=== PATIENT | female | born 1935 | race Caucasian/White ===

== ENCOUNTER 2017-09-29 10:05 | Emergency (ER) | payer MEDICARE, BC ==
[2017-09-29 10:22] VITALS: BP 146/80
--- NOTE | 2017-09-29 11:10 | RAD ---
INDICATION: Cough COMPARISON: None TECHNIQUE: PA and lateral dual-energy views were obtained. FINDINGS: Bones/Soft Tissues: There are no acute bony findings. There is osteopenia with kyphoscoliosis Cardiomediastinal: The cardiomediastinal silhouette is normal. There is calcified mitral annulus Lungs: There is hyperinflation. There are no acute infiltrates. Pleura: There are no pleural effusions. Other: None IMPRESSION: NO ACTIVE DISEASE.
--- NOTE | 2017-09-29 11:23 | UC ---
Respiratory Complaint HPI - HPI Summary HPI Summary: cough x 7 day was seen by pcp , dx with Flu , was started on Zpack no better, cont. to have chills, sob no fever - History of Current Complaint Chief Complaint: UCRespiratory Stated Complaint: SOB (HAD FLU) Time Seen by Provider: 09/29/17 10:35 Hx Obtained From: Patient Onset/Duration: Gradual Onset, Lasting Weeks - 1, Still Present, Resolved Timing: Constant Severity Initially: Moderate Severity Currently: Moderate Pain Intensity: 0 Character: Cough: Productive - yellow Aggravating Factors: Exertion, Deep Breaths Alleviating Factors: Nothing Associated Signs And Symptoms: Positive: Dyspnea, Chills, Wheezing, URI, Nasal Congestion. Negative: Fever, Pleuritic Chest Pain, Dizziness, Calf Pain - Allergies/Home Medications Allergies/Adverse Reactions: Allergies Allergy/AdvReac Type Severity Reaction Status Date / Time No Known Allergies Allergy Verified 09/29/17 10:14 Home Medications: Home Medications Azithromycin TAB* [Zithromax TAB (Z-MITRA) 250 mg #6 tabs] 250 mg PO DAILY [History Confirmed 09/29/17] PMH/Surg Hx/FS Hx/Imm Hx Cardiovascular History: Hypertension Respiratory History: COPD - Surgical History Surgical History: Yes Surgery Procedure, Year, and Place: benign bladder cyst removed 11 years ago , CATARACTS - Family History Known Family History: Positive: Hypertension - Social History Alcohol Use: None Substance Use Type: None Smoking Status (MU): Former Smoker When Did the Patient Quit Smoking/Using Tobacco: 2005 Review of Systems Constitutional: Chills, Fatigue Skin: Negative Eyes: Negative ENT: Nasal Discharge Respiratory: Shortness Of Breath, Cough Cardiovascular: Negative Gastrointestinal: Negative Is Patient Immunocompromised?: No All Other Systems Reviewed And Are Negative: Yes Physical Exam Triage Information Reviewed: Yes Appearance: Well-Appearing, No Pain Distress, Well-Nourished Vital Signs: Initial Vital Signs Temp 97.1 F 09/29/17 10:18 Pulse 112 09/29/17 10:18 Resp 16 09/29/17 10:18 BP 146/80 09/29/17 10:18 Pulse Ox 92 09/29/17 10:18 Vital Signs Reviewed: Yes Eyes: Positive: Conjunctiva Clear ENT: Positive: Normal ENT inspection, Hearing grossly normal, Pharynx normal, Nasal congestion Neck: Positive: Supple, Nontender, No Lymphadenopathy Respiratory: Positive: Chest non-tender, Decreased breath sounds. Negative: No respiratory distress, No accessory muscle use, Respiratory distress Cardiovascular: Positive: Tachycardia Skin Exam: Normal UC Diagnostic Evaluation - Laboratory O2 Sat by Pulse Oximetry: 92 Diagnostic Studies Comment: chest xray: IMPRESSION: NO ACTIVE DISEASE. Respiratory Course/Dx - Differential Dx/Diagnosis Provider Diagnoses: copd. acute Bronchitis Discharge - Discharge Plan Condition: Stable Disposition: HOME Prescriptions: Benzonatate CAP* [Tessalon 100 MG CAP*] 100 mg PO TID PRN #12 cap PRN Reason: Cough predniSONE TAB* [Deltasone TAB*] 20 mg PO DAILY #7 tab Patient Education Materials: COPD (Chronic Obstructive Pulmonary Disease) (ED) Referrals: Perry Chaparro MD [Primary Care Provider] -
--- OUTSIDE RECORDS SUMMARY | 2017-09-29 11:39 | XMS REPORT ---
:1935 External Reference #:[id number] Author Organization [facility] Address [address], [address] [place] [address] Phone [phone] Care Team Providers Name Role Phone Perry Chaparro MD Care Team Information Manager Helpdesk Unavailable Perry Chaparro MD Primary Care Physician Unavailable Payers Type Date Identification Numbers Payment Provider Subscriber Medicare Primary Policy Number: [id number] Medicare Magdalena Garcia PayID: [id number] [address] [place] [address] [facility] Policy Number: [id number] Jose Magdalena Garcia Group Number: [id number] [address] PayID: [id number] [place] [address] Problems Description No Information Social History Type Date Description Comments Marital Status ETOH Use Never used alcohol Smoking Patient is a former smoker Recreational Drug Use Never Used Drugs Allergies, Adverse Reactions, Alerts Date Description Reaction Status Severity Comments 04/16/2015 NKDA active Medications Medication Date Status Form Strength Qnty SIG Indications Ordering Provider Omnaris / Active Suspension 50mcg/Act 2 sprays Unknown 0000 both nostrils every day Cranberry / Active Capsules 250mg 1 by mouth Unknown 0000 every day Miacalcin / Active Solution 200Unit/A use [address] alternating nostrils once daily Miralax / Active Packet 3350NF 17g by mouth Unknown 0000 qhs Trimethoprim / Active Tablets 50mg 1/2 tab by Unknown 0000 mouth every day Cartia XT / Active Caps ER 240mg 1 by mouth Unknown 0000 24HR every day Bob Colon 00// Active Capsules 1 po qd Unknown Health 0000 Lansoprazole 00// Active Capsules DR 30mg 1 by mouth Unknown 0000 every day Eye Vitamins 00/ Active Capsules 1 cap by Unknown 0000 mouth twice a day ( Areds) Ofloxacin 11/11/ Hx Solution 0.3% 1unit 1 drop right H25.811 Darnell (Ophthalmic) 2017 - s eye jessica Amador, 12/01/ times daily 2017 for 10 days beginning three days prior to the operation Prednisolone 11/11/ Hx Suspension 1% 10ml 1 drop right H25.811 Darnell Acetate 2017 - eye jessica Amador, 05/26/ times daily MD 2016 for four weeks; please begin after surgery Diclofenac 11/11/ Hx Solution 0.1% 1unit 1 drop right H25.811 Darnell Sodium 2017 - s eye jessica Amador, 05/26/ times daily MD 2016 for 2 weeks beginning three days before operation Ofloxacin 08/29/ Hx Solution 0.3% 1unit use 1 drop H25.813 Darnell (Ophthalmic) 2016 - s left eye Amador, 09/18/ four times MD 2016 daily for 10 days beginning three days before surgery Prednisolone 08/29/ Hx Suspension 1% 10ml 1 drop left H25.813 Darnell Acetate 2016 - eye four Amador, 01/01/ times daily 2016 for four weeks; please begin after surgery Diclofenac 10/ Hx Solution 0.1% 1unit 1 drop left H25.813 Darnell Sodium 2016 - s eye jessica Amador, 01/01/ times daily 2016 for 2 weeks beginning three days before operation Oscal 500/200 00/00/ Hx Tablets 500-200mg by mouth Unknown D-3 0000 - -Unit twice a day 2016 Prilosec OTC 00/00/ Hx Tablets DR 20mg 1 by mouth Unknown 0000 - every day 2016 Multi Vitamin 00/00/ Hx Tablets Unknown Daily 0000 - 2016 Results Description No Information Procedures Date CPT Code Description Status 09/17/2017 81497 Eye Exam Est Patient Comprehensive Completed 05/26/2017 10221 Retina Completed 05/26/2017 29918 Eye Exam Est Patient Comprehensive Completed 11/17/2016 36178 Extracapsular Cataract Extraction W/Intraocular Lens Completed 10/22/2016 51302 Eye Exam Est Patient Comprehensive Completed 07/23/2016 56132 Eye Exam Est Patient Comprehensive Completed 04/30/2016 47526 Retina Completed 04/30/2016 75935 Eye Exam Est Patient Comprehensive Completed 01/03/2016 65327 Eye Exam Est Patient Comprehensive Completed 09/03/2015 24479 Extracapsular Cataract Removal W/Insertion Of Completed Intraocular Lens pr 08/29/2015 13935 Ophthalmic Biometry By Partial Coherence Interferometry Completed W/Intra 08/10/2015 69358 Eye Exam Est Patient Comprehensive Completed 08/10/2015 28412 Retina Completed 04/17/2015 03700 Retina Completed 04/17/2015 51944 Eye Exam New Patient Comprehensive Completed 05/16/2014 10379 Stress Test Interpre And Report Only Completed 05/16/2014 73846 Stress Test Physician Super Only Completed 05/16/2014 54999 Stress Test Physician Super Only Completed 05/16/2014 94386 Myocardial Imaging Tomographic Multiple Study At Rest Completed Or Stress 05/24/2010 Mammogram Completed 09/07/2007 35153 Stress Test Interpre And Report Only Completed 09/07/2007 37668 Stress Test Physician Super Only Completed Encounters Type Date Location Provider CPT E/M Dx Office Visit 04/26/2015 1:15[place] [address] H35.32 H35.31 H25.813 Office Visit 05/10/2009 10:00a Surgical Office [place], [address] 569.3 M.D. 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 degn, right eye, stage unspecifiedComments:- tolerating anti-vegf with dr forrest; next appt october 2017 - continue eye vitamins- continue amslergrid - retina appears flat at this time ; quiescent- will continue to follow with dr forrestFotalisha up:6 months return visit; dilate ou; oct macula ou ok to cancel 11/09 and 11/23 appt wkvopuC04.8590 Nexdtve age-related mclr degn, left eye, early dry stageComments:- appears stable- continue eye vitamins- continue amsler gridH04.123 Dry eye syndrome of bilateral lacrimal glandsComments:- for the tearing, please consider: - warm compresses - artificial tears both eyes - consider ointment at night - over the counter ointments include lacri-lube, systane, refresh pmZ96.1 Presence of intraocular lensComments:- good results/p ce, iol, right eye 11/17/16 , s/p ce, iol left eye
--- OUTSIDE RECORDS SUMMARY | 2017-09-29 11:41 | XMS REPORT ---
:1935 External Reference #:[id number] Author Organization [facility] Address [address] [place] [address] Phone [phone] Care Team Providers Name Role Phone Perry Chaparro M.D. Care Team Information Instructor Warper Unavailable Perry Chaparro M.D. Primary Care Physician Unavailable Payers Type Date Identification Numbers Payment Provider Subscriber Medicare Primary Effective: Policy Number: Medicare Magdalena Garcia 1999 [id number] PayID: [id number] [address] [place] [address] Medigap Part B Effective: 2015 Policy Number: [place] [place] Magdalena Garcia [id number] PayID: [id number] [address] [address] [place] [address] Problems Date Description Provider Status Onset: 05/06/2017 Urinary tract infectious disease Colby Michele MD Active Family History Date Family Member(s) Problem(s) Comments Father Bladder Cancer Father Heart Disease Mother Lung Cancer First Sister Breast Cancer Social History Type Date Description Comments Marital Status Occupation Patient is retired Cigarette Use 08/10/2017 Former Cigarette Smoker ETOH Use Patient denies alcohol use Daily Caffeine Consumes on average 1 cup of coffee per day Allergies, Adverse Reactions, Alerts Date Description Reaction Status Severity Comments 05/06/2017 NKDA active Medications Medication Date Status Form Strength Qnty SIG Indications Ordering Provider Lansoprazole / Active Capsules 30mg Shankar, Carson Amador M.D. Omnaris / Active Suspension 50mcg/Act Shankar, Carson Amador M.D. Preservision / Active Tablets Unknown Areds 0000 Bob Colon / Active Capsules Unknown Health 0000 Miralax / Active Packet 3350NF as Unknown 0000 needed Calcitonin 00/00/ Active Solution 200Unit/Ac Gauss, (New Site) 0000 t Juan Amador Ciprofloxacin 05/26/ Hx Tablets 500mg 14tabs 1 by RAIZA Michele 2016 - mouth Arnoskar 06/02/ twice a P.MD 2016 day Cipro 05/11/ Hx Tablets 500mg 14tabs 1 by Ryne 2016 - mouth Arnold 05/18/ twice a P.MD 2016 day Trimethoprim / Hx Tablets 100mg Unknown 0000 - 2017 Vital Signs Date Vital Result Comment 09/14/2017 Height 62 inches 5'2" Weight 148.00 lb Weight in kg's 67.133 BMI (Body Mass Index) 27.1 kg/m2 BP Systolic 144 mmHg BP Diastolic 95 mmHg Heart Rate 102 /min Body Temperature 97.7 F 08/10/2017 Height 62 inches 5'2" Weight 145.00 lb Weight in kg's 65.772 BMI (Body Mass Index) 26.5 kg/m2 BP Systolic 140 mmHg BP Diastolic 78 mmHg Heart Rate 76 /min Respiratory Rate 18 /min 05/06/2017 Height 62 inches 5'2" Weight 140.00 lb Weight in kg's 63.504 BMI (Body Mass Index) 25.6 kg/m2 BP Systolic 153 mmHg BP Diastolic 86 mmHg Heart Rate 92 /min Results Test Date Test Result H/L Range Note 230 Ua Routine 09/14/2017 Ua Glucose Negative Ua Protein Negative Ua Nitrite Negative Ua Leuko Negative Ua Blood Negative Ua Color Yellow Ua Ketones Negative Ua Clarity Clear Ua Specific [place] 1.010 1.003-1.030 Ua PH 6.0 5.0-7.5 Ua Bilirubin Negative Ua Urobilinogen 0.2 E.U./dL 0.0-1.0 Urine Microscopy 08/10/2017 Urine WBC 25-50 /HPF 0 - 5 Urine RBC 0-2 /HPF 0-2 Bacteria 1+ /HPF Neg Crystals NEG /HPF Neg Epithelial Cells 1+ /HPF Neg Sperm NEG /HPF Neg Yeast NEG /HPF Neg UACast NEG /LPF Neg Urine Culture 08/10/2017 Urine Culture URETHRAL LIT 1 Quantity > 100,000 CFU/mL 1, 2 230 Ua Routine 08/10/2017 Ua Glucose Negative Ua Protein Negative Ua Nitrite Negative Ua Leuko 1+ Ua Blood Negative Ua Color Yellow Ua Ketones Negative Ua Clarity Clear Ua Specific [place] 1.010 1.003-1.030 Ua PH 6.0 5.0-7.5 Ua Bilirubin Negative Ua Urobilinogen 0.2 E.U./dL 0.0-1.0 Urine Microscopy 05/06/2017 Urine WBC 25-50 /HPF 0 - 5 Urine RBC 0-2 /HPF 0-2 Bacteria 4+ /HPF Neg Crystals neg /HPF Neg Epithelial Cells 1+ /HPF Neg Sperm NEG /HPF Neg Yeast NEG /HPF Neg UACast neg /LPF Neg Urine Culture 05/06/2017 Urine Culture ENTEROBACTER KARI <SEE NOTE> 3 Quantity > 100,000 CFU/mL 4 Urine Culture ENTEROCOCCUS JADYN <SEE NOTE> 5 Quantity > 100,000 CFU/mL 6 Enterobacter Cloacae Complex 05/06/2017 Nitrofurantoin 32 Trimethoprim/Sulfamethoxazole >=320 Cefazolin >=64 Ciprofloxacin <=0.25 Piperacillin/Tazobactam 64 Ceftazidime 16 Ceftriaxone 16 Cefepime <=1 Levofloxacin <=0.12 Imipenem <=0.25 Gentamicin <=1 Tobramycin <=1 Enterococcus Faecalis 05/06/2017 Penicillin G 4 Tetracycline >=16 Nitrofurantoin <=16 Ampicillin <=2 Ciprofloxacin 1 Levofloxacin 0.5 Vancomycin 1 Urine Cytology 05/06/2017 Clinical History N39.0 Specimen Adequacy Satisfactory for <SEE NOTE> 7 BodySite Voided - Clean C <SEE NOTE> 8 Gross Description Received in a sp <SEE NOTE> 9 Microscopic Description Mild numbers of <SEE NOTE> 10 Final Diagnosis NEGATIVE FOR HIG <SEE NOTE> 11 CPTCode 60491 PDF Report SEE IMAGE 230 Ua Routine 05/06/2017 Ua Glucose Negative Ua Protein Negative Ua Nitrite Negative Ua Leuko 1+ Ua Blood Negative Ua Color yellow Ua Ketones Negative Ua Clarity clear Ua Specific [place] 1.010 1.003-1.030 Ua PH 6.5 5.0-7.5 Ua Bilirubin Negative Ua Urobilinogen 0.2 E.U./dL 0.0-1.0 Laboratory test finding 2016 Urine Culture Mixed Urethral High Laboratory test finding 10/12/2014 Urine Culture Non Lactose Frem High Laboratory test finding 11/14/2009 Urine Culture Klebsiella Pneue High 1 N39.0 2 > 100,000 CFU/mL 3 ENTEROBACTER CLOACAE COMPLEX 4 > 100,000 CFU/mL 5 ENTEROCOCCUS FAECALIS 6 > 100,000 CFU/mL 7 Satisfactory for evaluation. 8 Voided - Clean Catch 9 Received in a specimen container, labeled with the patients name and , is Cloudy Yellow fluid consistent with urine, measuring approximately 70 ml. 10 Mild numbers of neutrophils present. 11 NEGATIVE FOR HIGH-GRADE UROTHELIAL CARCINOMA. Procedures Date CPT Code Description Status 09/14/2017 05853 Insertion,Of Non Indwelling Bladder Catheter Eg Completed Straight Catheter 07/20/2015 Mammogram Completed 07/20/2014 Colonoscopy Completed Encounters Type Date Location Provider CPT E/M Dx Office Visit 09/14/2017 9:15a [facility], [address] N39.0 Urology P.A. R35.1 R39.14 R39.15 Office Visit 08/10/2017 11:45a [facility] [address] N39.0 Office Visit 05/06/2017 11:30a [facility] [address] N39.0 Plan of Care Future Appointment(s):10/08/2017 11:30 am - Colby Michele MD at [facility] Cwsjmlf7009/14/2017 - Bijan Soriano, P.A.N39.0 Urinary tract infection , site not specifiedComments:Urine is sent for culture and sensitivity. She is provided Cipro 250 twice a day with dosing and side effects instructions. We'll have a catheterized urine collected at her next follow-up visit with Dr. PAGE35.1 IfvsewhvM29.14 Feeling of incomplete bladder mjzfievtE05.15 Urgency of urination
--- OUTSIDE RECORDS SUMMARY | 2017-09-29 11:41 | XMS REPORT ---
:1935 External Reference #:[id number] Author Organization [facility] Address [address] [place] [address] Phone [phone] Care Team Providers Name Role Phone Perry Chaparro MD Primary Care Physician Unavailable Payers Type Date Identification Numbers Payment Provider Subscriber Medicare Primary Policy Number: [id number] Medicare Magdalena Garcia PayID: [id number] [address] [place] [address] Medigap Part B Policy Number: [id number] [facility] Magdalena Garcia Group Number: [id number] [address] [address] PayID: [id number] [place] [address] Problems Date Description Provider Status Onset: 07/15/2005 Type II diabetes mellitus uncontrolled Perry Chaparro MD Active Onset: 07/15/2005 Congenital heart disease Perry Chaparro MD Active Onset: 07/15/2005 Hyperlipidemia Perry Chaparro MD Active Onset: 07/15/2005 Chronic obstructive lung disease Perry Chaparro MD Active Onset: 07/15/2005 Conduction disorder of the heart Perry Chaparro MD Active Family History Date Family Member(s) Problem(s) Comments Father Hyperlipidemia Father due to Heart Disease () Mother due to Lung Cancer () First Son due to Cancer () First Sister Breast Cancer Social History Type Date Description Comments Marital Status Cigarette Use Former Cigarette Smoker ETOH Use Denies alcohol use Recreational Drug Use Denies Drug Use Smoking Patient is a former smoker # Partners in a Lifetime The patient has had 1 sexual partner Allergies, Adverse Reactions, Alerts Date Description Reaction Status Severity Comments 08/25/2016 NKDA active 11/08/2014 NKDA inactive Medications Medication Date Status Form Strength Qnty SIG Indications Ordering Provider Miacalcin 06/01 Active Solution 200Unit/M 4unit spray 1 . L s spray MD Shankar alternating nares once daily Lansoprazole 01/[address] 30mg 90cap 1 by mouth Perry F. s every day MD Shankar Preservision 08/27 Active Capsules Areds 2 Perry F. Areds MD Shankar Diltiazem HCL 06/04 Active Caps ER 240mg 90cap 1 by mouth I11.9 Perry F. ER 24HR s every day MD Shankar Clonidine HCL 05/03 Active Tablets 0.1mg 5tabs take one as I11.9 Perry needed for MD Shankar systolic blood pressure greater than 150 Omnaris 11/18 Active Suspension 50mcg/Act 3mont 1 every day hs as directed MD Shankar Miralax 12/05 Active Packet 3350NF 30PKT 17 GMS In 8 S Oz H2o Q 12 MD Shankar Hours prn Calcium 500 12/05 Active Tablets 500mg qd MD Shankar Linzess 00 Active Capsules 145mcg 10cap 1 by mouth Syam, /0000 s every day Bishwarup Trimethoprim 00 Active Tablets 100mg Unknown /0000 Paroxetine HCL 11/24 Hx Tablets 10mg 30tab 1 by mouth F32.9 Perry F. s every day MD Shankar - 06/01 Prilosec OTC 11/[address] 20mg 90tab tab 1 by Perry F. s mouth every MD Shankar - day 01/21 Ciprofloxacin 08/25 Hx Tablets 500mg 6tabs 1 by mouth N39.0 Perry F. twice a day MD Shankar - 11/24 Prilosec 08/[address] 20mg 90cap tab 1 by Perry F. s mouth every MD Shankar - day 11/24 Ditropan XL 11/15 Hx Tablets ER 5mg 90tab 1 by mouth N39.498 Perry . 24HR s every day MD Shankar - 06/01 Ciprofloxacin 11/08 Hx Tablets 250mg 6tabs 1 by mouth 788.1 Perry F. HCL /2014 twice a day MD Shankar - 11/28 Lansoprazole 08/[address] 30mg 180ca 1 by mouth Perry F. ps Twice A Day MD Shankar - 11/08 Prevacid 06/[address] 30mg 90cap 1 by mouth 530.81 Perry F. /2013 s every day MD Shankar - 08/07 Omeprazole 05/[address] 40mg 60cap 1 by mouth 530.81 Perry F. /2013 s bid MD Shankar - 06/05 Naprosyn 12/27 Hx Tablets 375mg 30tab 1 po bid Perry F. /2013 s prn MD Shankar - 09/22 Azithromycin 09/26 Hx Tablets 250mg 6tabs 2 po today, 496 Perry F. /2013 1 po day 2 MD Shankar - thru 5 04/25 Azithromycin 05/17 Hx Tablets 250mg 6tabs 2 po today, 461.90 Perry F. /2012 1 po day 2 MD Shankar - thru 5 09/26 Miacalcin 12/06 Hx Solution 200Unit/A 4unit spray 1 Perry F. /2012 ct s spray MD Shankar - alternating 06/01 nares once daily Cranberry 06/14 Hx Tablets 250mg Perry F. Extract MD Shankar - 09/22 Prilosec OTC 05/[address] 20mg 84tab 1 po qd Perry F. /2011 yakov Chaparro MD - 06/14 Amoxicillin 05/05 Hx Capsules 500mg 40cap 2 po bid 461.1 Perry F. /2010 yakov Chaparro MD - 10/05 Bactrim 11/18 Hx Tablets 400-80mg 1/2 po qd - 11/18 Paroxetine HCL 05/27 Hx Tablets 10mg 30tab 1 po qd 311 Perry F. /2009 yakov Chaparro MD - 06/24 Bactrim 05/13 Hx Tablets 400-80mg 1/2 bid for 1 wk, then - 1/2 po qd 05/13 Fluoxetine HCL 05/13 Hx Capsules 20mg 30cap 1 po qd 311 Perry F. /2009 yakov Chaparro MD - 05/27 Zithromax 09/10 Hx Tablets 250mg 1Pack 2 po day 1, 461.1 Perry F. /2009 1 po qd x MD Shankar - days 2-5 10/10 Multi-Vitamin 12/05 Hx Tablets 1 PO qd Perry F. /2008 MD Shankar - 06/01 Zithromax 12/05 Hx Tablets 250mg 1Pack 2 PO Day 1, 466.00 Perry F. /2008 1 PO qd X MD Shankar - Days 2-09/10 Cipro 07/05 Hx Tablets 500mg 14tab 1 PO bid 599.0 Perry F. /2006 yakov Chaparro MD - 03/27 Chantix 02/16 Hx as directed 305.1 Perry F. Starter Pack /2006 MD Shankar - 02/16 Chantix Con't 02/16 Hx 1mg 60uni 1mg po bid 305.1 Perry F. Month /2006 ts MD Shankar - 09/13 Chantix 12/15 Hx 1unit as Directed 305.1 Perry F. Starter /2006 yakov Chaparro MD - 02/16 Fosamax 07/29 Hx Tablets 70mg 12tab one po q Perry F. /2005 s maria t Chaparro MD - 05/24 Clarinex 07/29 Hx Tablets 5mg 90tab 1 PO qd prn Perry F. /2005 yakov Chaparro MD - 09/22 Calcium 07/28 Hx Tablets 500mg 1 PO tid Perry F. Carbonate W /2005 MD Shankar Vit D - 12/05 Claritin 07/28 Hx Tablets 10mg 100ta 1 po qd prn Perry F. /2005 bs MD Shankar - 07/29 Metamucil 07/28 Hx Granules 4.03GM/TS Perry F. /2005 P MD Shankar - 12/05 Lactulose 07/28 Hx Syrup 10GM/15 120ml 2 tsp po Perry F. /2005 ML qhs MD Shankar - 12/05 Miacalcin 07/01 Hx Solution 200Units/ 6unit 1 spray qd Perry Wilkins Activatio s to alt. MD Shankar Ballinger - n nares 12/06 Premarin 00 Hx Tablets 0.625mg 90tab 1 PO qd Oh, In /0000 s Betito [place] - 08/15 Macrodantin 00 Hx Capsules 100mg 14cap 1 Tab PO Unknown s bid X 7 - Days 12/05 Macrodantin 00 Hx Capsules 25mg 1 po qd Unknown /0000 - 05/13 Nitrofurantoin Hx Capsules 50mg 14cap 1 PO bid Perry Wilkins Macrocrystal / s MD Shankar - 04/25 Medications Administered in Office Medication Date Status Form Strength Qnty SIG Indications Ordering Provider H1N1 Administered Injection Perry FBhargavi Administration 009 MD Shankar -Use H1N1 Administered Injection Nurse Administration 009 -Use Immunizations CPT Code Status Date Vaccine Reaction Lot # [id number] Given 04/01/2017 Influenza Virus (Afluria) Split Virus 3 Years Of Age And Older Q2037 Given 04/05/2016 Influenza Vaccine (Fluvirin) 5 Years Of Age Or Older 12076 Given 06/04/2015 Tetanus,Diphtheria,Adut/Adol [id number] Pertussis 11685 Given 06/04/2015 Pneumococcal Conjugate Vaccine [id number] 13 Valent For Intramuscular Use Q2035 Given 04/03/2015 Influenza Virus (Afluria) Split [id number] Virus 3 Years Of Age And Older Q2037 Given 04/18/2014 Influenza Vaccine (Fluvirin) 5 Years Of Age Or Older Q2038 Given 04/05/2013 Influenza Vaccine (Fluzone) Done at [facility] Administered Age 3 And Older Q2037 Given 05/24/2012 Influenza Vaccine (Fluvirin) 3 [id number] Years Of Age Or Older Q2037 Given 02/28/2012 Influenza Vaccine (Fluvirin) 5 [id number] Years Of Age Or Older 49755 Given 12/24/2010 [place] [id number] 98504 Given 04/05/2010 Influenza Vaccine [id number] 45811 Given 05/30/2009 Zostavax 35345 Given 04/10/2009 Influenza Vaccine 39868 Given 08/15/2008 Zostavax [id number] 20873 Given 03/27/2008 Influenza Vaccine [id number] 15358 Given 04/23/2007 Influenza Vaccine [id number] 66492 Given 04/16/2006 Influenza Vaccine 08649 Given 04/16/2006 Influenza Vaccine [id number] 34164 Given 07/29/2005 Pneumovax Polyvalent Inj Im [id number] 47504 Given 05/13/2005 Influenza Vaccine [id number] 01916 Given 05/13/2005 Influenza Vaccine 97898 Given 06/20/2004 Influenza Vaccine 96390 Given 12/04/2003 Tetanus And Diptheria Toxiods 00956 Given 06/19/2003 DT Immunization DIP/Tet (History Only) Vital Signs Date Vital Result Comment 09/22/2017 BP Systolic 128 mmHg BP Diastolic 74 mmHg Heart Rate 80 /min Body Temperature 97.8 F Respiratory Rate 20 /min Height 62 inches 5'2" 06/01/2017 BP Systolic 138 mmHg BP Diastolic 84 mmHg Height 62 inches 5'2" Weight 147.00 lb BMI (Body Mass Index) 26.9 kg/m2 05/11/2017 BP Systolic 110 mmHg BP Diastolic 60 mmHg Height 62 inches 5'2" Weight 146.00 lb BMI (Body Mass Index) 26.7 kg/m2 01/21/2017 BP Systolic 140 mmHg BP Diastolic 80 mmHg 01/14/2017 BP Systolic 150 mmHg BP Diastolic 82 mmHg 11/24/2016 BP Systolic 138 mmHg BP Diastolic 70 mmHg Height 62 inches 5'2" Weight 147.00 lb BMI (Body Mass Index) 26.9 kg/m2 08/25/2016 BP Systolic 124 mmHg BP Diastolic 68 mmHg Height 62 inches 5'2" Weight 144.00 lb BMI (Body Mass Index) 26.3 kg/m2 05/13/2016 BP Systolic 124 mmHg BP Diastolic 70 mmHg Height 62 inches 5'2" Weight 148.00 lb BMI (Body Mass Index) 27.1 kg/m2 09/10/2015 BP Systolic 136 mmHg BP Diastolic 70 mmHg 08/27/2015 BP Systolic 128 mmHg BP Diastolic 70 mmHg Height 62 inches 5'2" Weight 146.00 lb BMI (Body Mass Index) 26.7 kg/m2 06/04/2015 BP Systolic 144 mmHg BP Diastolic 88 mmHg Height 62 inches 5'2" Weight 147.00 lb BMI (Body Mass Index) 26.9 kg/m2 05/03/2015 BP Systolic 140 mmHg BP Diastolic 82 mmHg BP Systolic Recheck 142 mmHg BP Diastolic Recheck 80 mmHg 11/28/2014 BP Systolic 120 mmHg BP Diastolic 70 mmHg 11/15/2014 BP Systolic 128 mmHg BP Diastolic 84 mmHg 11/08/2014 BP Systolic 110 mmHg BP Diastolic 60 mmHg Body Temperature 93.5 F Height 62 inches 5'2" 09/04/2014 BP Systolic 138 mmHg BP Diastolic 78 mmHg Height 62 inches 5'2" 08/07/2014 BP Systolic 138 mmHg BP Diastolic 72 mmHg Height 62 inches 5'2" Weight 143.00 lb BMI (Body Mass Index) 26.2 kg/m2 06/05/2014 BP Systolic 140 mmHg BP Diastolic 78 mmHg 05/30/2014 BP Systolic 124 mmHg BP Diastolic 70 mmHg Height 62 inches 5'2" Weight 146.00 lb BMI (Body Mass Index) 26.7 kg/m2 05/23/2014 BP Systolic 128 mmHg BP Diastolic 70 mmHg 05/10/2014 BP Systolic 128 mmHg BP Diastolic 62 mmHg 05/03/2014 BP Systolic 128 mmHg BP Diastolic 80 mmHg Height 62 inches 5'2" 04/25/2014 BP Systolic 154 mmHg BP Diastolic 88 mmHg 01/10/2014 BP Systolic 132 mmHg BP Diastolic 80 mmHg 11/30/2013 BP Systolic 150 mmHg BP Diastolic 90 mmHg 09/26/2013 BP Systolic 140 mmHg BP Diastolic 80 mmHg Height 62 inches 5'2" Weight 148.00 lb BMI (Body Mass Index) 27.1 kg/m2 05/17/2013 BP Systolic 118 mmHg BP Diastolic 60 mmHg Body Temperature 95.0 F Height 62 inches 5'2" Weight 142.00 lb BMI (Body Mass Index) 26.0 kg/m2 12/06/2012 BP Systolic 122 mmHg BP Diastolic 60 mmHg Height 62 inches 5'2" Weight 150.00 lb BMI (Body Mass Index) 27.4 kg/m2 06/14/2012 BP Systolic 126 mmHg BP Diastolic 60 mmHg Height 62 inches 5'2" 05/24/2012 BP Systolic 118 mmHg BP Diastolic 60 mmHg Height 62 inches 5'2" Weight 152.00 lb BMI (Body Mass Index) 27.8 kg/m2 10/06/2011 BP Systolic 132 mmHg BP Diastolic 78 mmHg Height 62 inches 5'2" Weight 159.00 lb BMI (Body Mass Index) 29.1 kg/m2 05/05/2011 BP Systolic 140 mmHg BP Diastolic 82 mmHg Body Temperature 96.3 F Height 62 inches 5'2" Weight 157.00 lb BMI (Body Mass Index) 28.7 kg/m2 12/24/2010 BP Systolic 138 mmHg BP Diastolic 78 mmHg Height 62 inches 5'2" Weight 156.00 lb BMI (Body Mass Index) 28.5 kg/m2 12/02/2010 BP Systolic 140 mmHg BP Diastolic 86 mmHg Height 62 inches 5'2" 11/18/2010 BP Systolic 118 mmHg BP Diastolic 62 mmHg Height 62 inches 5'2" Weight 154.00 lb BMI (Body Mass Index) 28.2 kg/m2 06/24/2010 BP Systolic 128 mmHg BP Diastolic 72 mmHg Height 62 inches 5'2" 05/27/2010 BP Systolic 122 mmHg BP Diastolic 60 mmHg Height 62 inches 5'2" 05/13/2010 BP Systolic 124 mmHg BP Diastolic 78 mmHg Height 62 inches 5'2" Weight 150.00 lb BMI (Body Mass Index) 27.4 kg/m2 10/10/2009 BP Systolic 122 mmHg BP Diastolic 64 mmHg Height 62 inches 5'2" Weight 153.00 lb BMI (Body Mass Index) 28.0 kg/m2 09/10/2009 BP Systolic 140 mmHg BP Diastolic 100 mmHg Body Temperature 97.4 F Weight 152.00 lb 04/16/2009 BP Systolic 154 mmHg BP Diastolic 98 mmHg 12/05/2008 BP Systolic 140 mmHg BP Diastolic 80 mmHg Body Temperature 98.0 F Height 62 inches 5'2" Weight 147.00 lb BMI (Body Mass Index) 26.9 kg/m2 11/13/2008 BP Systolic 128 mmHg BP Diastolic 72 mmHg Height 62 inches 5'2" Weight 145.00 lb BMI (Body Mass Index) 26.5 kg/m2 08/15/2008 BP Systolic 148 mmHg BP Diastolic 84 mmHg Height 62 inches 5'2" Weight 142.00 lb BMI (Body Mass Index) 26.0 kg/m2 03/27/2008 BP Systolic 128 mmHg BP Diastolic 80 mmHg Height 62 inches 5'2" Weight 138.00 lb BMI (Body Mass Index) 25.2 kg/m2 09/13/2007 BP Systolic 130 mmHg BP Diastolic 86 mmHg Height 62 inches 5'2" Weight 135.00 lb BMI (Body Mass Index) 24.7 kg/m2 07/05/2007 BP Systolic 140 mmHg BP Diastolic 84 mmHg Height 62 inches 5'2" Weight 125.31 lb BMI (Body Mass Index) 22.9 kg/m2 06/14/2007 BP Systolic 122 mmHg BP Diastolic 70 mmHg Height 62 inches 5'2" Weight 120.00 lb BMI (Body Mass Index) 21.9 kg/m2 02/16/2007 BP Systolic 114 mmHg BP Diastolic 60 mmHg Height 62 inches 5'2" Weight 115.00 lb BMI (Body Mass Index) 21.0 kg/m2 12/15/2006 BP Systolic 118 mmHg BP Diastolic 62 mmHg Height 62 inches 5'2" Weight 115.00 lb BMI (Body Mass Index) 21.0 kg/m2 06/15/2006 BP Systolic 124 mmHg BP Diastolic 60 mmHg Height 62 inches 5'2" 07/29/2005 BP Systolic 128 mmHg BP Diastolic 84 mmHg Height 62 inches 5'2" Weight 113.00 lb BMI (Body Mass Index) 20.7 kg/m2 Results Test Date Test Result H/L Range Note Laboratory test finding 01/14/2017 Urea Nitrogen 17 mg/dL 7-25 Creatinine W/O Egfr 0.88 mg/dL 0.60-0.88 1 Comp Metabolic Panel 08/04/2016 Sodium 138 mmol/L 135-146 Potassium 4.1 mmol/L 3.5-5.3 Chloride 102 mmol/L 98-110 Carbon Dioxide 26 mmol/L 20-31 Calcium 9.8 mg/dL 8.6-10.4 Alkaline Phosphatase 158 U/L High 33-130 Ast 15 U/L 10-35 Alt 10 U/L 6-29 Bilirubin,Total 0.7 mg/dL 0.2-1.2 Glucose 94 mg/dL 65-99 2 Urea Nitrogen 20 mg/dL 7-25 Creatinine 0.96 mg/dL High 0.60-0.93 3 BUN/Creatinine Ratio 20.5 6-22 Protein,Total 7.1 g/dL 6.1-8.1 Albumin 4.1 g/dL 3.6-5.1 Globulin,Calculated 3.0 g/dL 1.9-3.7 A/G Ratio 1.3 1.0-2.5 Egfr Non-Afr. Mozambican 56 ML/MIN/1.73M2 Low > Or=60 Egfr 65 ML/MIN/1.73M2 > Or=60 Alk Phosphatase Isoenzymes 08/04/2016 Alkaline Phosphatase 153 U/L High 33 -130 Liver Isoenzyme 59 % 25-69 Bone Isoenzyme 37 % 28-66 Intestine Isoenzyme 4 % 1-24 Macrohepatic Isoenzyme 0 % <=0 Placental Isoenzyme 0 % <=0 CBC W/ Diff & PLT 08/04/2016 WBC 9.7 thous/L 3.8-10.8 RBC 4.65 mill/L 3.80-5.10 Hemoglobin 14.5 g/dL 11.7-15.5 Hematocrit 44.8 % 35.0-45.0 MCV 96.4 FL 80.0-100.0 MCH 31.1 pg 27.0-33.0 MCHC 32.3 g/dL 32.0-36.0 RDW 14.6 % 11.0-15.0 Platelet Count 422 thous/L High 140-400 Platelet Sufficiency PENDING MPV 10.0 FL 7.5-11.5 Neutrophils,Absolute 6690 cells/L 4613-0168 Bands,Absolute PENDING Metamyelocytes,Absolute PENDING Myelocytes,Absolute PENDING Promyelocytes,Absolute PENDING Lymphocytes,Absolute 1710 cells/L 850-3900 Monocytes,Absolute 930 cells/L 200-950 Eosinophils,Absolute 350 cells/L 15-500 Basophils,Absolute 20 cells/L 0-200 Blast Cells,Absolute PENDING Nucleated RBC,Absolute PENDING Total Neutrophils,% 69 % 40-75 Bands,% PENDING Metamyelocytes,% PENDING Myelocytes,% PENDING Promyelocytes,% PENDING Total Lymphocytes,% 18 % 12-47 Monocytes,% 10 % 4-12 Eosinophils,% 4 % 0-4 Basophils,% 0 % 0-1 4 Blasts,% PENDING Nucleated RBC PENDING RBC Morphology PENDING Anisocytosis PENDING Poikilocytosis PENDING Microcytosis PENDING Macrocytosis PENDING Polychromasia PENDING Hypochromasia PENDING Target Cells PENDING Basophilic Stippling PENDING Comment PENDING Lipid Panel 08/04/2016 Cholesterol 206 mg/dL High 125-200 HDL Cholesterol 71 mg/dL > Or=46 Cholesterol/HDL Ratio 2.9 < Or=5.0 LDL Chol,Calculated 121 mg/dL <130 5 Triglycerides 72 mg/dL <150 Non-HDL Cholesterol 135 mg/dL 6 Laboratory test 08/04/2016 Vitamin 32 NG/ML 30-100 7 finding D,25-Hydroxy,Total,Immunoassay TSH & 08/04/2016 TSH 0.71 mIU/L 0.40-4.50 8 T4,Free T4,Free 1.3 ng/dL 0.8-1.8 Laboratory test finding 05/08/2016 Magnesium 2.0 mg/dL 1.5-2.5 Alkaline Phosphatase 186 U/L High 33-130 CBC W/ Diff & PLT 08/21/2015 WBC 8.7 thous/L 3.8-10.8 9 RBC 4.55 mill/L 3.80-5.10 9 Hemoglobin 13.9 g/dL 11.7-15.5 9 Hematocrit 44.3 % 35.0-45.0 9 MCV 97.4 FL 80.0-100.0 9 MCH 30.5 pg 27.0-33.0 9 MCHC 31.3 g/dL Low 32.0-36.0 9 RDW 13.9 % 11.0-15.0 9 Platelet Count 387 thous/L 140-400 9 Platelet Sufficiency PENDING 9 MPV 10.3 FL 7.5-11.5 9 Neutrophils,Absolute 5930 cells/L 0713-3937 9 Bands,Absolute PENDING 9 Metamyelocytes,Absolute PENDING 9 Myelocytes,Absolute PENDING 9 Promyelocytes,Absolute PENDING 9 Lymphocytes,Absolute 1540 cells/L 850-3900 9 Monocytes,Absolute 850 cells/L 200-950 9 Eosinophils,Absolute 370 cells/L 15-500 9 Basophils,Absolute 30 cells/L 0-200 9 Blast Cells,Absolute PENDING 9 Nucleated RBC,Absolute PENDING 9 Total Neutrophils,% 68 % 40-75 9 Bands,% PENDING 9 Metamyelocytes,% PENDING 9 Myelocytes,% PENDING 9 Promyelocytes,% PENDING 9 Total Lymphocytes,% 18 % 12-47 9 Monocytes,% 10 % 4-12 9 Eosinophils,% 4 % 0-4 9 Basophils,% 0 % 0-1 9, 10 Blasts,% PENDING 9 Nucleated RBC PENDING 9 RBC Morphology PENDING 9 Anisocytosis PENDING 9 Poikilocytosis PENDING 9 Microcytosis PENDING 9 Macrocytosis PENDING 9 Polychromasia PENDING 9 Hypochromasia PENDING 9 Target Cells PENDING 9 Basophilic Stippling PENDING 9 Comment PENDING 9 BMP W/O Egfr 08/21/2015 Sodium 140 mmol/L 135-146 9 Potassium 4.4 mmol/L 3.5-5.3 9 Chloride 103 mmol/L 98-110 9 Carbon Dioxide 24 mmol/L 19-30 9 Calcium 9.8 mg/dL 8.6-10.4 9 Glucose 88 mg/dL 65-99 9, 11 Urea Nitrogen 18 mg/dL 7-25 9 Creatinine 0.93 mg/dL 0.60-0.93 9, 12 BUN/Creatinine Ratio 19.0 6-22 9 Hepatic Function Panel 08/21/2015 Alkaline Phosphatase 167 U/L High 33- 130 9 Ast 16 U/L 10-35 9 Alt 10 U/L 6-29 9 Bilirubin,Total 0.5 mg/dL 0.2-1.2 9 Bilirubin,Direct 0.1 mg/dL < Or=0.2 9 Protein,Total 6.8 g/dL 6.1-8.1 9 Albumin 4.0 g/dL 3.6-5.1 9 Globulin,Calculated 2.8 g/dL 1.9-3.7 9 A/G Ratio 1.4 1.0-2.5 9 Laboratory 05/24/2015 Vitamin 34 NG/ML 30-100 9, 13 test finding D,25-Hydroxy,Total,Immunoassay TSH & 05/24/2015 TSH 0.79 0.40-4.50 9, 14 T4,Free mIU/L T4,Free 1.2 ng/dL 0.8-1.8 9 CBC W/ Diff & PLT 05/24/2015 WBC 9.0 thous/L 3.8-10.8 9 RBC 4.38 mill/L 3.80-5.10 9 Hemoglobin 13.8 g/dL 11.7-15.5 9 Hematocrit 43.3 % 35.0-45.0 9 MCV 98.9 FL 80.0-100.0 9 MCH 31.5 pg 27.0-33.0 9 MCHC 31.8 g/dL Low 32.0-36.0 9 RDW 14.8 % 11.0-15.0 9 Platelet Count 423 thous/L High 140-400 9 Platelet Sufficiency PENDING 9 MPV 9.4 FL 7.5-11.5 9 Neutrophils,Absolute 6290 cells/L 5132-0963 9 Bands,Absolute PENDING 9 Metamyelocytes,Absolute PENDING 9 Myelocytes,Absolute PENDING 9 Promyelocytes,Absolute PENDING 9 Lymphocytes,Absolute 1670 cells/L 850-3900 9 Monocytes,Absolute 750 cells/L 200-950 9 Eosinophils,Absolute 280 cells/L 15-500 9 Basophils,Absolute 30 cells/L 0-200 9 Blast Cells,Absolute PENDING 9 Nucleated RBC,Absolute PENDING 9 Total Neutrophils,% 70 % 40-75 9 Bands,% PENDING 9 Metamyelocytes,% PENDING 9 Myelocytes,% PENDING 9 Promyelocytes,% PENDING 9 Total Lymphocytes,% 19 % 12-47 9 Monocytes,% 8 % 4-12 9 Eosinophils,% 3 % 0-4 9 Basophils,% 0 % 0-1 9, 15 Blasts,% PENDING 9 Nucleated RBC PENDING 9 RBC Morphology PENDING 9 Anisocytosis PENDING 9 Poikilocytosis PENDING 9 Microcytosis PENDING 9 Macrocytosis PENDING 9 Polychromasia PENDING 9 Hypochromasia PENDING 9 Target Cells PENDING 9 Basophilic Stippling PENDING 9 Comment PENDING 9 Lipid Panel 05/24/2015 Cholesterol 219 mg/dL High 125-200 9 HDL Cholesterol 86 mg/dL > Or=46 9 Cholesterol/HDL Ratio 2.5 < Or=5.0 9 LDL Chol,Calculated 115 mg/dL <130 9, 16 Triglycerides 89 mg/dL <150 9 Non-HDL Cholesterol 134 mg/dL 9, 17 BMP W/O Egfr 05/24/2015 Sodium 140 mmol/L 135-146 9 Potassium 4.4 mmol/L 3.5-5.3 9 Chloride 102 mmol/L 98-110 9 Carbon Dioxide 25 mmol/L 19-30 9 Calcium 9.7 mg/dL 8.6-10.4 9 Glucose 85 mg/dL 65-99 9, 18 Urea Nitrogen 13 mg/dL 7-25 9 Creatinine 1.05 mg/dL High 0.60-0.93 9, 19 BUN/Creatinine Ratio 12.8 6-22 9 Laboratory test finding 05/29/2014 Esophageal Biopsy See Note 20 [facility] 25-Hydroxy D 05/22/2014 Vitamin D,25-Oh,Total 46 ng/mL 30- 100 (D2,D3) LC/MS Vitamin D,25-Oh,D3 46 ng/mL Vitamin D,25-Oh,D2 <4 ng/mL 21 Lipid Panel 05/22/2014 Cholesterol 236 mg/dL High 125-200 HDL Cholesterol 73 mg/dL > Or=46 Cholesterol/HDL Ratio 3.2 < Or=5.0 LDL Chol,Calculated 144 mg/dL High <130 22 Triglycerides 96 mg/dL <150 Non-HDL Cholesterol 163 mg/dL High 23 Laboratory test finding 05/22/2014 Magnesium 2.0 mg/dL 1.5-2.5 Comp Metabolic Panel 05/22/2014 Sodium 141 mmol/L 135-146 Potassium 4.7 mmol/L 3.5-5.3 Chloride 102 mmol/L 98-110 Carbon Dioxide 24 mmol/L 19-30 Calcium 9.8 mg/dL 8.6-10.4 Alkaline Phosphatase 116 U/L 33-130 Ast 31 U/L 10-35 Alt 13 U/L 6-29 Bilirubin,Total 0.6 mg/dL 0.2-1.2 Glucose 84 mg/dL 65-99 24 Urea Nitrogen 13 mg/dL 7-25 Creatinine 0.85 mg/dL 0.60-0.93 25 BUN/Creatinine Ratio 15.1 6-22 Protein,Total 7.5 g/dL 6.1-8.1 Albumin 4.2 g/dL 3.6-5.1 Globulin,Calculated 3.3 g/dL 1.9-3.7 A/G Ratio 1.3 1.0-2.5 Egfr Non-Afr. [place] 66 ML/MIN/1.73M2 > Or=60 Egfr 77 ML/MIN/1.73M2 > Or=60 CBC W/ Diff & PLT 05/22/2014 WBC 8.6 thous/L 3.8-10.8 RBC 4.50 mill/L 3.80-5.10 Hemoglobin 14.5 g/dL 11.7-15.5 Hematocrit 43.4 % 35.0-45.0 MCV 96.4 FL 80.0-100.0 MCH 32.1 pg 27.0-33.0 MCHC 33.3 g/dL 32.0-36.0 RDW 14.2 % 11.0-15.0 Platelet Count 512 thous/L High 140-400 Platelet Sufficiency PENDING Neutrophils,Absolute 5710 cells/L 4354-7637 Bands,Absolute PENDING Metamyelocytes,Absolute PENDING Myelocytes,Absolute PENDING Promyelocytes,Absolute PENDING Lymphocytes,Absolute 2030 cells/L 850-3900 Monocytes,Absolute 590 cells/L 200-950 Eosinophils,Absolute 300 cells/L 15-500 Basophils,Absolute 20 cells/L 0-200 Blast Cells,Absolute PENDING Nucleated RBC,Absolute PENDING Total Neutrophils,% 66 % Not Established Bands,% PENDING Metamyelocytes,% PENDING Myelocytes,% PENDING Promyelocytes,% PENDING Total Lymphocytes,% 23 % Not Established Monocytes,% 7 % Not Established Eosinophils,% 4 % Not Established Basophils,% 0 % Not Established Blasts,% PENDING Nucleated RBC PENDING RBC Morphology PENDING Anisocytosis PENDING Poikilocytosis PENDING Microcytosis PENDING Macrocytosis PENDING Polychromasia PENDING Hypochromasia PENDING Target Cells PENDING Basophilic Stippling PENDING Comment PENDING TSH & T4,Free 05/04/2014 TSH 1.18 mIU/L 0.40-4.50 26 T4,Free 1.6 ng/dL 0.8-1.8 CBC W/ Diff & PLT 05/04/2014 WBC 13.2 thous/L High 3.8-10.8 RBC 4.27 mill/L 3.80-5.10 Hemoglobin 13.8 g/dL 11.7-15.5 Hematocrit 40.8 % 35.0-45.0 MCV 95.8 FL 80.0-100.0 MCH 32.3 pg 27.0-33.0 MCHC 33.7 g/dL 32.0-36.0 RDW 14.8 % 11.0-15.0 Platelet Count 275 thous/L 140-400 Platelet Sufficiency PENDING Neutrophils,Absolute 9970 cells/L High 2754-0311 Bands,Absolute PENDING Metamyelocytes,Absolute PENDING Myelocytes,Absolute PENDING Promyelocytes,Absolute PENDING Lymphocytes,Absolute 1690 cells/L 850-3900 Monocytes,Absolute 1400 cells/L High 200-950 Eosinophils,Absolute 100 cells/L 15-500 Basophils,Absolute 40 cells/L 0-200 Blast Cells,Absolute PENDING Nucleated RBC,Absolute PENDING Total Neutrophils,% 76 % Not Established Bands,% PENDING Metamyelocytes,% PENDING Myelocytes,% PENDING Promyelocytes,% PENDING Total Lymphocytes,% 13 % Not Established Monocytes,% 11 % Not Established Eosinophils,% 1 % Not Established Basophils,% 0 % Not Established Blasts,% PENDING Nucleated RBC PENDING RBC Morphology PENDING Anisocytosis PENDING Poikilocytosis PENDING Microcytosis PENDING Macrocytosis PENDING Polychromasia PENDING Hypochromasia PENDING Target Cells PENDING Basophilic Stippling PENDING Comment PENDING Thyroid AB (Mitesh,Tpo) 05/04/2014 Thyroglobulin Antibodies <1 IU/mL < Or=1 Thyroid Peroxidase AB <1 IU/mL <9 Lipid Panel 09/19/2013 Cholesterol 226 mg/dL High 125-200 9 HDL Cholesterol 85 mg/dL > Or=46 9 Cholesterol/HDL Ratio 2.7 < Or=5.0 9 LDL Chol,Calculated 121 mg/dL <130 9, 27 Triglycerides 101 mg/dL <150 9 Non-HDL Cholesterol 141 mg/dL 9, 28 Laboratory test finding 05/02/2013 Direct LDL 141 mg/dL High <130 9, 29 Comp Metabolic Panel 11/22/2012 Sodium 141 mmol/L 135-146 9 Potassium 3.9 mmol/L 3.5-5.3 9 Chloride 101 mmol/L 98-110 9 Carbon Dioxide 25 mmol/L 19-30 9 Calcium 9.7 mg/dL 8.6-10.4 9 Alkaline Phosphatase 136 U/L High 33-130 9 Ast 22 U/L 10-35 9 Alt 15 U/L 6-40 9 Bilirubin,Total 0.8 mg/dL 0.2-1.2 9 Glucose 81 mg/dL 65-99 9, 30 Urea Nitrogen 16 mg/dL 7-25 9 Creatinine 0.90 mg/dL 0.60-0.93 9, 31 BUN/Creatinine Ratio 17.2 6-22 9 Protein,Total 7.2 g/dL 6.1-8.1 9 Albumin 4.5 g/dL 3.6-5.1 9 Globulin,Calculated 2.7 g/dL 1.9-3.7 9 A/G Ratio 1.6 1.0-2.5 9 Egfr Non-Afr. Moz[place]ican 63 ML/MIN/1.73M2 > Or=60 9 Egfr 72 ML/MIN/1.73M2 > Or=60 9 CBC W/ Diff & PLT 11/22/2012 WBC 7.4 thous/L 3.8-10.8 9 RBC 4.42 mill/L 3.80-5.10 9 Hemoglobin 14.3 g/dL 11.7-15.5 9 Hematocrit 43.3 % 35.0-45.0 9 MCV 98.0 FL 80.0-100.0 9 MCH 32.2 pg 27.0-33.0 9 MCHC 32.9 g/dL 32.0-36.0 9 RDW 14.2 % 11.0-15.0 9 Platelet Count 396 thous/L 140-400 9 Neutrophils,Absolute 4930 cells/L 4216-1766 9 Lymphocytes,Absolute 1730 cells/L 850-3900 9 Monocytes,Absolute 510 cells/L 200-950 9 Eosinophils,Absolute 220 cells/L 15-500 9 Basophils,Absolute 40 cells/L 0-200 9 Total Neutrophils,% 66 % 38-80 9 Total Lymphocytes,% 23 % 15-49 9 Monocytes,% 7 % 0-13 9 Eosinophils,% 3 % 0-8 9 Basophils,% 1 % 0-2 9 TSH & T4,Free 11/22/2012 TSH 1.17 mIU/L 0.40-4.50 9, 32 T4,Free 1.3 ng/dL 0.8-1.8 9, 33 Vitamin D, 25 Hydroxy 11/22/2012 Vitamin D,25-Oh,Total 36 ng/mL 30-100 9 Vitamin D,25-Oh,D3 36 ng/mL 9 Vitamin D,25-Oh,D2 <4 ng/mL 9, 34 Lipid Panel 11/22/2012 Cholesterol 246 mg/dL High 125-200 9 HDL Cholesterol 89 mg/dL > Or=46 9 Cholesterol/HDL Ratio 2.8 < Or=5.0 9 LDL Chol,Calculated 140 mg/dL High <130 9, 35 Triglycerides 87 mg/dL <150 9 Non-HDL Cholesterol 157 mg/dL 9, 36 Laboratory test 05/10/2012 LDL Cholesterol,Direct 142 mg/dL High <130 9, 37 finding Laboratory test 09/29/2011 LDL Cholesterol,Direct 139 mg/dL High <130 9, 38 finding Hepatic Function Panel 09/29/2011 Alkaline Phosphatase 135 U/L High 33- 130 9 Ast 24 U/L 10-35 9 Alt 18 U/L 6-40 9 Bilirubin,Total 0.6 mg/dL 0.2-1.2 9 Bilirubin,Direct 0.1 mg/dL < Or=0.2 9 Protein,Total 7.1 g/dL 6.2-8.3 9 Albumin 4.3 g/dL 3.6-5.1 9 Globulin,Calculated 2.8 g/dL 2.2-3.9 9 A/G Ratio 1.5 1.0-2.1 9 TSH & T4,Free 09/29/2011 TSH 1.21 mIU/L 0.40-4.50 9, 39 T4,Free 1.3 ng/dL 0.8-1.8 9 Vitamin D, 25 Hydroxy 09/29/2011 Vitamin D,25-Oh,Total 39 ng/mL 30-100 9 Vitamin D,25-Oh,D3 39 ng/mL 9 Vitamin D,25-Oh,D2 <4 ng/mL 9, 40 Comp Metabolic Panel 09/29/2011 Sodium 140 mmol/L 135-146 9 Potassium 4.1 mmol/L 3.5-5.3 9 Chloride 102 mmol/L 98-110 9 Carbon Dioxide 25 mmol/L 21-33 9 Calcium 9.6 mg/dL 8.6-10.4 9 Alkaline Phosphatase 135 U/L High 33-130 9 Ast 24 U/L 10-35 9 Alt 18 U/L 6-40 9 Bilirubin,Total 0.6 mg/dL 0.2-1.2 9 Glucose 88 mg/dL 65-99 9, 41 Urea Nitrogen 16 mg/dL 7-25 9 Creatinine 0.78 mg/dL 0.60-0.93 9, 42 BUN/Creatinine Ratio 20.8 6-22 9 Protein,Total 7.1 g/dL 6.2-8.3 9 Albumin 4.3 g/dL 3.6-5.1 9 Globulin,Calculated 2.8 g/dL 2.2-3.9 9 A/G Ratio 1.5 1.0-2.1 9 Egfr Non-Afr. [place]ican 75 ML/MIN/1.73M2 > Or=60 9 Egfr 87 ML/MIN/1.73M2 > Or=60 9 CBC W/ Diff & PLT 09/29/2011 WBC 9.6 thous/L 3.8-10.8 9 RBC 4.34 mill/L 3.80-5.10 9 Hemoglobin 14.1 g/dL 11.7-15.5 9 Hematocrit 43.5 % 35.0-45.0 9 MCV 100.3 FL High 80.0-100.0 9 MCH 32.5 pg 27.0-33.0 9 MCHC 32.4 g/dL 32.0-36.0 9 RDW 14.3 % 11.0-15.0 9 Platelet Count 429 thous/L High 140-400 9 Neutrophils,Absolute 6560 cells/L 5862-1042 9 Lymphocytes,Absolute 1880 cells/L 850-3900 9 Monocytes,Absolute 800 cells/L 200-950 9 Eosinophils,Absolute 320 cells/L 15-500 9 Basophils,Absolute 30 cells/L 0-200 9 Total Neutrophils,% 68 % 38-80 9 Total Lymphocytes,% 20 % 15-49 9 Monocytes,% 8 % 0-13 9 Eosinophils,% 3 % 0-8 9 Basophils,% 0 % 0-2 9 CBC W/ Diff & PLT 04/28/2011 WBC 7.7 thous/L 3.8-10.8 RBC 4.16 mill/L 3.80-5.10 Hemoglobin 13.9 g/dL 11.7-15.5 Hematocrit 42.1 % 35.0-45.0 MCV 101.3 FL High 80.0-100.0 MCH 33.5 pg High 27.0-33.0 MCHC 33.1 g/dL 32.0-36.0 RDW 14.3 % 11.0-15.0 Platelet Count 372 thous/L 140-400 Neutrophils,Absolute 4650 cells/L 2224-5487 Lymphocytes,Absolute 1830 cells/L 850-3900 Monocytes,Absolute 720 cells/L 200-950 Eosinophils,Absolute 480 cells/L 15-500 Basophils,Absolute 10 cells/L 0-200 Total Neutrophils,% 60 % 38-80 Total Lymphocytes,% 24 % 15-49 Monocytes,% 9 % 0-13 Eosinophils,% 6 % 0-8 Basophils,% 0 % 0-2 Laboratory test finding 12/17/2010 Carbon Dioxide 25 mmol/L 21-33 Ketone Panel 11/25/2010 Acetone None Detected mg/dL 9, 43 Methyl Ethyl Ketone None Detected g/mL 9, 44 Methyl N-Propyl Ketone None Detected g/mL 9, 45 Methyl N-Butyl Ketone None Detected g/mL 9, 46 Methyl N-Amyl Ketone None Detected g/mL 9, 47 Methyl Isobutyl Ketone None Detected g/mL 9, 48 Methyl Isoamyl Ketone None Detected g/mL 9, 49 Diisobutyl Ketone None Detected g/mL 9, 50 Cyclohexanone None Detected g/mL 9, 51 Mesityl Oxide None Detected g/mL 9, 52 Vitamin B12/Folate Panel Serum 11/25/2010 Vitamin B12,Serum 671 pg/mL 200 -1100 9 Folate,Serum >24.0 NG/ML 9, 53 Reticulocyte Count 11/25/2010 Reticulocyte Count 1.0 % 0.5-2.0 9 Reticulocyte Count,Absolute 49748 cells/L 50558-02397 9 Comp Metabolic Panel 11/12/2010 Sodium 141 mmol/L 135-146 Potassium 4.2 mmol/L 3.5-5.3 Chloride 103 mmol/L 98-110 Carbon Dioxide 18 mmol/L Low 21-33 Calcium 9.8 mg/dL 8.6-10.2 Alkaline Phosphatase 125 U/L 33-130 Ast 25 U/L 10-35 Alt 19 U/L 6-40 Bilirubin,Total 0.7 mg/dL 0.2-1.2 Glucose 82 mg/dL 65-99 54 Urea Nitrogen 23 mg/dL 7-25 Creatinine 1.05 mg/dL 0.63-1.22 BUN/Creatinine Ratio 21.9 6-22 Protein,Total 7.3 g/dL 6.2-8.3 Albumin 4.6 g/dL 3.6-5.1 Globulin,Calculated 2.7 g/dL 2.2-3.9 A/G Ratio 1.7 1.0-2.1 Egfr Non-Afr. [place] 53 ML/MIN/1.73M2 Low > Or=60 Egfr 61 ML/MIN/1.73M2 > Or=60 CBC W/ Diff & PLT 11/12/2010 WBC 10.1 thous/L 3.8-10.8 RBC 4.29 mill/L 3.80-5.10 Hemoglobin 14.4 g/dL 11.7-15.5 Hematocrit 43.7 % 35.0-45.0 MCV 101.9 FL High 80.0-100.0 MCH 33.5 pg High 27.0-33.0 MCHC 32.9 g/dL 32.0-36.0 RDW 14.2 % 11.0-15.0 Platelet Count 425 thous/L High 140-400 Neutrophils,Absolute 6270 cells/L 3577-0460 Lymphocytes,Absolute 2790 cells/L 850-3900 Monocytes,Absolute 740 cells/L 200-950 Eosinophils,Absolute 260 cells/L 15-500 Basophils,Absolute 30 cells/L 0-200 Total Neutrophils,% 62 % 38-80 Total Lymphocytes,% 28 % 15-49 Monocytes,% 7 % 0-13 Eosinophils,% 3 % 0-8 Basophils,% 0 % 0-2 TSH & T4,Free 11/12/2010 TSH,3RD Generation 2.25 mIU/L 0.40-4.50 55 T4,Free 1.2 ng/dL 0.8-1.8 Lipid Panel 11/12/2010 Cholesterol 234 mg/dL High 125-200 HDL Cholesterol 89 mg/dL > Or=46 Cholesterol/HDL Ratio 2.6 < Or=5.0 LDL Chol,Calculated 121 mg/dL <130 56 Triglycerides 118 mg/dL <150 Comp Metabolic Panel 05/01/2010 Sodium 145 mmol/L 135-146 9 Potassium 5.1 mmol/L 3.5-5.3 9 Chloride 103 mmol/L 98-110 9 Carbon Dioxide 28 mmol/L 21-33 9 Calcium 10.4 mg/dL High 8.6-10.2 9 Alkaline Phosphatase 151 U/L High 33-130 9 Ast 29 U/L 10-35 9 Alt 25 U/L 6-40 9 Bilirubin,Total 0.6 mg/dL 0.2-1.2 9 Glucose 94 mg/dL 65-99 9, 57 Urea Nitrogen 16 mg/dL 7-25 9 Creatinine 0.93 mg/dL 0.63-1.22 9 BUN/Creatinine Ratio 17.6 6-22 9 Protein,Total 7.5 g/dL 6.2-8.3 9 Albumin 4.5 g/dL 3.6-5.1 9 Globulin,Calculated 3.0 g/dL 2.2-3.9 9 A/G Ratio 1.5 1.0-2.1 9 Egfr Non-Afr. [place] 59 ML/MIN/1.73M2 Low > Or=60 9 Egfr >60 ML/MIN/1.73M2 > Or=60 9 CBC W/ Diff & PLT 05/01/2010 WBC 9.9 thous/L 3.8-10.8 9 RBC 4.32 mill/L 3.80-5.10 9 Hemoglobin 14.3 g/dL 11.7-15.5 9 Hematocrit 43.3 % 35.0-45.0 9 MCV 100.1 FL High 80.0-100.0 9 MCH 33.0 pg 27.0-33.0 9 MCHC 33.0 g/dL 32.0-36.0 9 RDW 15.2 % High 11.0-15.0 9 Platelet Count 405 thous/L High 140-400 9 Platelet Sufficiency NORMAL Normal 9 Neutrophils,Absolute 6430 cells/L 0381-8262 9 Bands,Absolute DNR cells/L 0-750 9 Metamyelocytes,Absolute DNR cells/L 0 9 Myelocytes,Absolute DNR cells/L 0 9 Promyelocytes,Absolute DNR cells/L 0 9 Lymphocytes,Absolute 2220 cells/L 850-3900 9 Monocytes,Absolute 830 cells/L 200-950 9 Eosinophils,Absolute 410 cells/L 15-500 9 Basophils,Absolute 50 cells/L 0-200 9 Blast Cells,Absolute DNR cells/L 0 9 Nucleated RBC,Absolute DNR cells/L 0 9 Total Neutrophils,% 66 % 38-80 9 Bands,% DNR % 0-10 9 Metamyelocytes,% DNR % 9 Myelocytes,% DNR % 9 Promyelocytes,% DNR % 9 Total Lymphocytes,% 22 % 15-49 9 Monocytes,% 8 % 0-13 9 Eosinophils,% 4 % 0-8 9 Basophils,% 0 % 0-2 9 Blasts,% DNR % 9 Nucleated RBC DNR /100WBC 0 9 RBC Morphology NORMAL 9 Anisocytosis DNR 9 Poikilocytosis DNR 9 Microcytosis DNR 9 Macrocytosis DNR 9 Polychromasia DNR 9 Hypochromasia DNR 9 Target Cells DNR 9 Basophilic Stippling DNR 9 Comment DNR 9 TSH & T4,Free 05/01/2010 TSH,3RD Generation 2.21 mIU/L 0.40-4.50 9, 58 T4,Free 1.1 ng/dL 0.8-1.8 9 Lipid Panel 10/04/2009 Cholesterol 220 mg/dL High 125-200 9 HDL Cholesterol 88 mg/dL > Or=46 9 Cholesterol/HDL Ratio 2.5 < Or=5.0 9 LDL Chol,Calculated 114 mg/dL <130 9, 59 Triglycerides 90 mg/dL <150 9 Lipid Panel 11/01/2008 Cholesterol 248 mg/dL High 125-200 9 HDL Cholesterol 95 mg/dL > Or=46 9 Triglycerides 73 mg/dL <150 9 Cholesterol/HDL Ratio 2.6 < Or=5.0 9 LDL Chol,Calculated 138 mg/dL High <130 9, 60 Laboratory test finding 07/24/2008 TSH,3RD Generation 0.85 mU/L 0.40- 4.50 9, 61 T4,Free 1.2 ng/dL 0.8-1.8 9 Comp Metabolic Panel 07/24/2008 Sodium 142 mmol/L 135-146 9 Potassium 5.5 mmol/L High 3.5-5.3 9 Chloride 104 mmol/L 98-110 9 Carbon Dioxide 30 mmol/L 21-33 9 Calcium 9.8 mg/dL 8.6-10.2 9 Alkaline Phosphatase 127 U/L 33-130 9 Ast 21 U/L 10-35 9 Alt 17 U/L 6-40 9 Bilirubin,Total 0.7 mg/dL 0.2-1.2 9 Glucose 97 mg/dL 65-99 9, 62 Urea Nitrogen 15 mg/dL 7-25 9 Creatinine 0.87 mg/dL 0.50-1.20 9 BUN/Creatinine Ratio 17.7 6-22 9 Protein,Total 7.1 g/dL 6.2-8.3 9 Albumin 4.2 g/dL 3.6-5.1 9 Globulin,Calculated 2.9 g/dL 2.2-3.9 9 A/G Ratio 1.5 1.0-2.1 9 Egfr Non-Afr. [place] >60 ML/MIN/1.73M2 > Or=60 9 Egfr >60 ML/MIN/1.73M2 > Or=60 9 Lipid Panel 07/24/2008 Cholesterol 244 mg/dL High 125-200 9 HDL Cholesterol 92 mg/dL > Or=46 9 Cholesterol/HDL Ratio 2.7 < Or=5.0 9 LDL Chol,Calculated 130 mg/dL High <130 9, 63 Triglycerides 109 mg/dL <150 9 CBC W/ Diff & PLT 07/24/2008 WBC 8.3 thous/L 3.8-10.8 9 RBC 4.09 mill/L 3.80-5.10 9 Hemoglobin 13.7 g/dL 11.7-15.5 9 Hematocrit 40.6 % 35.0-45.0 9 MCV 99.2 FL 80.0-100.0 9 MCH 33.4 pg High 27.0-33.0 9 MCHC 33.7 g/dL 32.0-36.0 9 RDW 14.3 % 11.0-15.0 9 Platelet Count 425 thous/L High 140-400 9 Platelet Sufficiency NORMAL Normal 9 Neutrophils,Absolute 5180 cells/L 3190-4564 9 Bands,Absolute DNR cells/L 0-750 9 Metamyelocytes,Absolute DNR cells/L 0 9 Myelocytes,Absolute DNR cells/L 0 9 Promyelocytes,Absolute DNR cells/L 0 9 Lymphocytes,Absolute 2070 cells/L 850-3900 9 Monocytes,Absolute 690 cells/L 200-950 9 Eosinophils,Absolute 270 cells/L 15-500 9 Basophils,Absolute 50 cells/L 0-200 9 Blast Cells,Absolute DNR cells/L 0 9 Nucleated RBC,Absolute DNR cells/L 0 9 Total Neutrophils,% 63 % 38-80 9 Bands,% DNR % 0-10 9 Metamyelocytes,% DNR % 9 Myelocytes,% DNR % 9 Promyelocytes,% DNR % 9 Total Lymphocytes,% 25 % 15-49 9 Monocytes,% 8 % 0-13 9 Eosinophils,% 3 % 0-8 9 Basophils,% 1 % 0-2 9 Blasts,% DNR % 9 Nucleated RBC DNR /100WBC 0 9 RBC Morphology NORMAL 9 Anisocytosis DNR 9 Poikilocytosis DNR 9 Microcytosis DNR 9 Macrocytosis DNR 9 Polychromasia DNR 9 Hypochromasia DNR 9 Target Cells DNR 9 Basophilic Stippling DNR 9 Comment DNR 9 Laboratory test finding 05/04/2008 Rapid Urease NEGATIVE 64 Laboratory test finding 05/04/2008 Pathology Exam (SEE NOTE) 65 Basic Metabolic Panel 04/04/2008 Glucose 85 mg/dL 76-115 BUN 13 mg/dL 5-23 Creatinine 1.0 mg/dL 0.5-1.4 BUN/Creat 13.0 Sodium 140 mEq/L 136-145 Potassium 3.7 mEq/L 3.5-5.1 Chloride 104 mEq/L 98-107 Carbon Dioxide 28 mEq/L 21-32 Anion Gap 12 mEq/L 8-16 Calcium 9.8 mg/dL 8.5-10.1 CBC 04/04/2008 White Blood Count 9.5 K/uL 3.1-10.7 Red Blood Count 4.16 M/uL 3.90-5.40 Hemoglobin 13.4 gm/dL 11.6-15.8 Hematocrit 40.6 % 36.0-46.1 Mean Cell Volume 97.6 fl 80.9-99.0 Mean Corpuscular HGB 32.2 pg 25.9-32.7 Mean Corpuscular HGB Conc 33.0 g/dL 30.8-34.3 Platelet Count 382 K/uL High 155-360 Red Cell Distri Width %CV 13.4 % 11.7-14.4 Mean Platelet Volume 10.5 fL 8.9-12.4 Lipid Panel 08/30/2007 Cholesterol 237 mg/dL High 125-200 66 HDL Cholesterol 100 mg/dL > Or=40 66, 67 Cholesterol/HDL Ratio 2.4 < Or=5.0 66 LDL Chol,Calculated 122 mg/dL <130 66, 68 Triglycerides 74 mg/dL <150 66 Basic Metabolic Panel 06/02/2007 Sodium 142 mmol/L 135-146 66 Potassium 5.4 mmol/L High 3.5-5.3 66 Chloride 105 mmol/L 98-110 66 Carbon Dioxide 27 mmol/L 21-33 66 Calcium 9.8 mg/dL 8.6-10.2 66 Glucose 85 mg/dL 65-99 66, 69 Urea Nitrogen 15 mg/dL 7-25 66 Creatinine 0.85 mg/dL 0.50-1.20 66 BUN/Creatinine Ratio 18.1 6-22 66 Egfr Non-Afr. [place] >60 ML/MIN/1.7 > Or=60 66 Egfr >60 ML/MIN/1.7 > Or=60 66 CBC W/ Diff & PLT 06/02/2007 WBC 8.0 thous/L 3.8-10.8 66 RBC 3.96 mill/L 3.80-5.10 66 Hemoglobin 13.2 g/dL 11.7-15.5 66 Hematocrit 39.7 % 35.0-45.0 66 MCV 100.3 FL High 80.0-100.0 66 MCH 33.4 pg High 27.0-33.0 66 MCHC 33.3 g/dL 32.0-36.0 66 RDW 13.7 % 11.0-15.0 66 Platelet Count 419 thous/L High 140-400 66 Platelet Sufficiency NORMAL Normal 66 Neutrophils,Absolute 4720 cells/L 4464-3225 66 Bands,Absolute DNR cells/L 0-750 66 Metamyelocytes,Absolute DNR cells/L 0 66 Myelocytes,Absolute DNR cells/L 0 66 Promyelocytes,Absolute DNR cells/L 0 66 Lymphocytes,Absolute 2110 cells/L 850-3900 66 Monocytes,Absolute 590 cells/L 200-950 66 Eosinophils,Absolute 600 cells/L High 15-500 66 Basophils,Absolute 20 cells/L 0-200 66 Blast Cells,Absolute DNR cells/L 0 66 Nucleated RBC,Absolute DNR cells/L 0 66 Total Neutrophils,% 60 % 38-80 66 Bands,% DNR % 0-10 66 Metamyelocytes,% DNR % 66 Myelocytes,% DNR % 66 Promyelocytes,% DNR % 66 Total Lymphocytes,% 26 % 15-49 66 Monocytes,% 7 % 0-13 66 Eosinophils,% 7 % 0-8 66 Basophils,% 0 % 0-2 66 Blasts,% DNR % 66 Nucleated RBC DNR /100WBC 0 66 RBC Morphology NORMAL 66 Anisocytosis DNR 66 Poikilocytosis DNR 66 Microcytosis DNR 66 Macrocytosis DNR 66 Polychromasia DNR 66 Hypochromasia DNR 66 Target Cells DNR 66 Basophilic Stippling DNR 66 Comment DNR 66 Lipid Panel 06/02/2007 Cholesterol 244 mg/dL High 125-200 66 HDL Cholesterol 84 mg/dL > Or=40 66, 70 Cholesterol/HDL Ratio 2.9 < Or=5.0 66 LDL Chol,Calculated 142 mg/dL High <130 66, 71 Triglycerides 89 mg/dL <150 66 Hepatic Function Panel 06/02/2007 Alkaline Phosphatase 112 U/L 33-130 66 Ast 27 U/L 10-35 66 Alt 19 U/L 6-40 66 Bilirubin,Total 0.7 mg/dL 0.2-1.2 66 Bilirubin,Direct 0.1 mg/dL < Or=0.2 66 Protein,Total 7.2 g/dL 6.2-8.3 66 Albumin 4.1 g/dL 3.6-5.1 66 Laboratory test finding 06/02/2007 Hemoglobin A1c 5.7 % <6.0 66 TSH,3RD Generation 0.87 mU/L 0.40-4.50 66, 72 T4,Free 1.2 ng/dL 0.8-1.8 66 Lipid Panel 12/08/2006 Cholesterol 233 mg/dL High 125-200 66 HDL Cholesterol 86 mg/dL > Or=40 66, 73 Cholesterol/HDL Ratio 2.7 < Or=5.0 66 LDL Chol,Calculated 131 mg/dL High <130 66, 74 Triglycerides 80 mg/dL <150 66 Hepatic Function Panel 12/08/2006 Alkaline Phosphatase 88 U/L 33-130 66 Ast 23 U/L 10-35 66 Alt 18 U/L 6-40 66 Bilirubin,Total 0.7 mg/dL 0.2-1.2 66 Bilirubin,Direct 0.1 mg/dL < Or=0.2 66 Protein,Total 7.0 g/dL 6.2-8.3 66 Albumin 4.4 g/dL 3.6-5.1 66 Basic Metabolic Panel 05/26/2006 Sodium 140 mmol/L 135-146 66 Potassium 4.3 mmol/L 3.5-5.3 66 Chloride 105 mmol/L 98-110 66 Carbon Dioxide 27 mmol/L 21-33 66 Calcium 10.5 mg/dL High 8.5-10.4 66 Glucose 90 mg/dL 65-99 66, 75 Urea Nitrogen 12 mg/dL 7-30 66 Creatinine 0.9 mg/dL 0.5-1.2 66 BUN/Creatinine Ratio 14.5 6-25 66 GFR Estimated >60 ML/MIN/1.7 >59 66, 76 Lipid Panel 05/26/2006 Cholesterol 229 mg/dL High <200 66 HDL Cholesterol 81 mg/dL >40 66, 77 Cholesterol/HDL Ratio 2.8 <4.4 66 LDL Chol,Calculated 127 mg/dL <130 66, 78 Triglycerides 106 mg/dL <150 66 CBC W/ Diff & PLT 05/26/2006 WBC 10.8 thous/L 3.8-10.8 66 RBC 4.38 mill/L 3.80-5.10 66 Hemoglobin 15.3 g/dL 11.7-15.5 66 Hematocrit 43.9 % 35.0-45.0 66 MCV 100.1 FL High 80.0-100.0 66 MCH 34.8 pg High 27.0-33.0 66 MCHC 34.8 g/dL 32.0-36.0 66 RDW 14.6 % 11.0-15.0 66 Platelet Count 388 thous/L 140-400 66 Platelet Sufficiency NORMAL Normal 66 Neutrophils,Absolute 6120 cells/L 9607-4307 66 Bands,Absolute DNR cells/L 0-750 66 Metamyelocytes,Absolute DNR cells/L 0 66 Myelocytes,Absolute DNR cells/L 0 66 Promyelocytes,Absolute DNR cells/L 0 66 Lymphocytes,Absolute 2620 cells/L 850-3900 66 Monocytes,Absolute 670 cells/L 200-950 66 Eosinophils,Absolute 1380 cells/L High 15-500 66 Basophils,Absolute 30 cells/L 0-200 66 Blast Cells,Absolute DNR cells/L 0 66 Nucleated RBC,Absolute DNR cells/L 0 66 Total Neutrophils,% 57 % 38-80 66 Bands,% DNR % 0-10 66 Metamyelocytes,% DNR % 66 Myelocytes,% DNR % 66 Promyelocytes,% DNR % 66 Total Lymphocytes,% 24 % 15-49 66 Monocytes,% 6 % 0-13 66 Eosinophils,% 13 % 0-8 66 Basophils,% 0 % 0-2 66 Blasts,% DNR % 66 Nucleated RBC DNR /100WBC 0 66 RBC Morphology NORMAL 66 Anisocytosis DNR 66 Poikilocytosis DNR 66 Microcytosis DNR 66 Macrocytosis DNR 66 Polychromasia DNR 66 Hypochromasia DNR 66 Target Cells DNR 66 Basophilic Stippling DNR 66 Comment DNR 66 Laboratory test finding 05/26/2006 TSH 0.63 mU/L 0.40-5.50 66 T4,Free 1.4 ng/dL 0.8-1.8 66 CBC W/ Diff & PLT 07/07/2005 WBC 9.5 thous/L 3.8-10.8 RBC 4.39 mill/L 3.80-5.10 Hemoglobin 15.5 g/dL 11.7-15.5 Hematocrit 45.1 % High 35.0-45.0 MCV 102.7 FL High 80.0-100.0 MCH 35.3 pg High 27.0-33.0 MCHC 34.3 g/dL 32.0-36.0 RDW 13.0 % 11.0-15.0 Platelet Count 334 thous/L 140-400 Platelet Sufficiency NORMAL Neutrophils,Absolute 5640 cells/L 5025-4994 Bands,Absolute DNR cells/L 0-750 Metamyelocytes,Absolute DNR cells/L 0 Myelocytes,Absolute DNR cells/L 0 Promyelocytes,Absolute DNR cells/L 0 Lymphocytes,Absolute 2720 cells/L 850-3900 Monocytes,Absolute 630 cells/L 200-950 Eosinophils,Absolute 480 cells/L 15-500 Basophils,Absolute 30 cells/L 0-200 Blast Cells,Absolute DNR cells/L 0 Nucleated RBC,Absolute DNR cells/L 0 Total Neutrophils,% 59 % 38-80 Bands,% DNR % 0-10 Metamyelocytes,% DNR % Myelocytes,% DNR % Promyelocytes,% DNR % Total Lymphocytes,% 29 % 15-49 Monocytes,% 7 % 0-13 Eosinophils,% 5 % 0-8 Basophils,% 0 % 0-2 Blasts,% DNR % Nucleated RBC DNR /100WBC 0 RBC Morphology NORMAL Anisocytosis DNR Poikilocytosis DNR Microcytosis DNR Macrocytosis DNR Polychromasia DNR Hypochromasia DNR Target Cells DNR Basophilic Stippling DNR Comment DNR Basic Metabolic Panel 07/07/2005 Sodium 143 mmol/L 135-146 Potassium 5.1 mmol/L 3.5-5.3 Chloride 108 mmol/L 98-110 Carbon Dioxide 29 mmol/L 21-33 Calcium 9.7 mg/dL 8.5-10.4 Glucose 98 mg/dL 65-99 79 Urea Nitrogen 11 mg/dL 7-30 Creatinine 0.9 mg/dL 0.5-1.2 BUN/Creatinine Ratio 12.6 6-25 GFR Estimated >60 ML/MIN/1.7 >59 80 TSH & T4,Free 07/07/2005 TSH 0.88 mU/L 0.40-5.50 T4,Free 1.3 ng/dL 0.8-1.8 Lipid Panel 07/07/2005 HDL Cholesterol 88 mg/dL >40 81 Cholesterol 226 mg/dL High <200 Cholesterol/HDL Ratio 2.6 <4.4 LDL Chol,Calculated 114 mg/dL <130 82 Triglycerides 122 mg/dL <150 1 The upper reference limit for Creatinine is approximately 13% higher for people identified as -[place]. 2 GLUCOSE REFERENCE RANGE BASED ON FASTING SPECIMEN. 3 The upper reference limit for Creatinine is approximately 13% higher for people identified as -[place]. 4 Relative blood cell counts (%) should be compared with absolute cell counts (cells/mcL). Relative counts may not be clinically meaningful if the absolute count of one or more cell type is decreased. Reference ranges for relative cell counts derived from: A Manual of Laboratory and Diagnostics Tests, 9th Ed, [employer], 2015. Pediatric Reference Intervals, 7th Ed, [facility] [employer], 2011. 5 LDL-CHOLESTEROL RISK CATEGORY* GOAL VERY HIGH (E.G. DIABETES + CVD) <70 MG/DL HIGH (DIABETICS; CHD RISK EQUIVALENTS) <100 MG/DL MODERATELY HIGH (MULTIPLE(2+) RISK FACTORS) <130 MG/DL 0 TO 1 RISK FACTORS <160 MG/DL * NCEP REPORT. CIRCULATION 2004; 110: 227-239 6 Target for non-HDL cholesterol is 30 mg/dL higher than LDL cholesterol target. 7 Vitamin D Status 25-OH Vitamin D: Deficiency: <20 ng/mL Insufficiency: 20-29 ng/mL Optimal: > or=30 ng/mL For 25-OH Vitamin D testing on patients on D2-supplementation and patients for whom quantitation of D2 and D3 fractions is required, the [facility] 25-OH Vit D, (D2,D3),LC/MS/MS is recommended: Order code 40917 (patients >2 yrs). 8 REFERENCE RANGES BELOW ARE APPLICABLE TO FEMALES FIRST TRIMESTER - 0.26 - 2.66 mIU/L SECOND TRIMESTER - 0.55 - 2.73 mIU/L THIRD TRIMESTER - 0.43 - 2.91 mIU/L 9 FASTING 10 Relative blood cell counts (%) should be compared with absolute cell counts (cells/mcL). Relative counts may not be clinically meaningful if the absolute count of one or more cell type is decreased. Reference ranges for relative cell counts derived from: A Manual of Laboratory and Diagnostics Tests, 9th Ed, [employer], 2015. Pediatric Reference Intervals, 7th Ed, [facility] [employer], 2011. 11 GLUCOSE REFERENCE RANGE BASED ON FASTING SPECIMEN. 12 The upper reference limit for Creatinine is approximately 13% higher for people identified as -[place]. 13 Vitamin D Status 25-OH Vitamin D: Deficiency: <20 ng/mL Insufficiency: 20-29 ng/mL Optimal: > or=30 ng/mL For 25-OH Vitamin D testing on patients on D2-supplementation and patients for whom quantitation of D2 and D3 fractions is required, the [facility] 25-OH Vit D, (D2,D3),LC/MS/MS is recommended: Order code [id number] (patients >2 yrs). 14 REFERENCE RANGES BELOW ARE APPLICABLE TO FEMALES FIRST TRIMESTER - 0.26 - 2.66 mIU/L SECOND TRIMESTER - 0.55 - 2.73 mIU/L THIRD TRIMESTER - 0.43 - 2.91 mIU/L 15 Relative blood cell counts (%) should be compared with absolute cell counts (cells/mcL). Relative counts may not be clinically meaningful if the absolute count of one or more cell type is decreased. Reference ranges for relative cell counts derived from: A Manual of Laboratory and Diagnostics Tests, 9th Ed, [employer], 2015. Pediatric Reference Intervals, 7th Ed, [employer], 2011. 16 LDL-CHOLESTEROL RISK CATEGORY* GOAL VERY HIGH (E.G. DIABETES + CVD) <70 MG/DL HIGH (DIABETICS; CHD RISK EQUIVALENTS) <100 MG/DL MODERATELY HIGH (MULTIPLE(2+) RISK FACTORS) <130 MG/DL 0 TO 1 RISK FACTORS <160 MG/DL * [facility]CEP REPORT. CIRCULATION 2004; 110: 227-239 17 Target for non-HDL cholesterol is 30 mg/dL higher than LDL cholesterol target. 18 GLUCOSE REFERENCE RANGE BASED ON FASTING SPECIMEN. 19 The upper reference limit for Creatinine is approximately 13% higher for people identified as -[place]. 20 OPERATION/PROCEDURE Colonoscopy, EGD DIAGNOSIS: PART 1: "DUODENUM, BIOPSIES": DUODENAL MUCOSA WITHOUT SIGNIFICANT PATHOLOGICAL ABNORMALITY. PART 2: "STOMACH, BIOPSIES": REACTIVE GASTROPATHY. NO HELICOBACTER SEEN WITH SPECIAL STAIN. PART 3: "ESOPHAGUS, BIOPSIES": SQUAMOUS MUCOSAL CHANGES CONSISTENT WITH CHRONIC ESOPHAGITIS. NO EVIDENCE OF EOSINOPHILIC ESOPHAGITIS. ORTIZ/radha GROSS Part 1; "DUODENAL BIOPSIES". The specimen is received in an appropriately labeled container. This contains three rounded elizabeth colored pieces of soft tissue measuring up to 0.4 cm.; filtered and submitted in toto within a single cassette. Part 2; "STOMACH BIOPSIES". The specimen is received in an appropriately labeled container. This contains two rounded elizabeth colored pieces of soft tissue measuring up to 0.4 cm.; filtered and submitted in toto within a single cassette. Part 3; "ESOPHAGEAL BIOPSIES". The specimen is received in an appropriately labeled container. This contains two rounded elizabeth colored pieces of soft tissue measuring up to 0.4 cm.; filtered and submitted in toto within a single cassette. JW/clf MICROSCOPIC Part 1: Sections reveal duodenal mucosa with well-oriented crypts, with normal maturation of lining cells to the surface. The stroma contains a normal degree of lymphoplasmacytic infiltration. Part 2: Sections show glandular elongation, tortuosity, and hypercellularity of gastric pits, foveolar hyperplasia, and villiform transformation of the mucosa. The glands appear more angular than usual. Foveolar cells show mild mucin depletion and vacuolization. There is capillary congestion, vasodilatation and edema. Smooth muscle fibers extend high into the lamina propria. There are interstitial chronic inflammatory cells. There are no Helicobacter-type bacteria identified with Warthin- Starry staining. The controls are adequate. Part 3: Sections show squamous epithelium characterized by acanthosis, parakeratosis, mildly ectatic, elongated rete papillary vessels, lymphocytic exocytosis. There is no evidence of significantly increased intraepithelial eosinophils. PRE OPERATIVE DIAGNOSIS CIBH, history of polyp, GERD REVIEW CODE CODE: I Signed Electronically signed MABEL GUY MD 05/30/14 1422 21 25-OHD3 indicates both endogenous production and supplementation. 25-OHD2 is an indicator of exogenous sources such as diet or supplementation. Therapy is based on measurement of Total 25-OHD, with levels <20 ng/mL indicative of Vitamin D deficiency while levels between 20 ng/mL and 30 ng/mL suggest insufficiency. Optimal levels are > or=30ng/mL. For more information on this test, go to http://[email or web address].sl/faq/25-OHVitaminD 22 LDL-CHOLESTEROL RISK CATEGORY* GOAL VERY HIGH (E.G. DIABETES + CVD) <70 MG/DL HIGH (DIABETICS; CHD RISK EQUIVALENTS) <100 MG/DL MODERATELY HIGH (MULTIPLE(2+) RISK FACTORS) <130 MG/DL 0 TO 1 RISK FACTORS <160 MG/DL * NCEP REPORT. CIRCULATION 2004; 110: [phone] 23 Target for non-HDL cholesterol is 30 mg/dL higher than LDL cholesterol target. 24 GLUCOSE REFERENCE RANGE BASED ON FASTING SPECIMEN. 25 The upper reference limit for Creatinine is approximately 13% higher for people identified as -[place]. 26 REFERENCE RANGES BELOW ARE APPLICABLE TO FEMALES FIRST TRIMESTER - 0.26 - 2.66 mIU/L SECOND TRIMESTER - 0.55 - 2.73 mIU/L THIRD TRIMESTER - 0.43 - 2.91 mIU/L 27 LDL-CHOLESTEROL RISK CATEGORY* GOAL VERY HIGH (E.G. DIABETES + CVD) <70 MG/DL HIGH (DIABETICS; CHD RISK EQUIVALENTS) <100 MG/DL MODERATELY HIGH (MULTIPLE(2+) RISK FACTORS) <130 MG/DL 0 TO 1 RISK FACTORS <160 MG/DL * NCEP REPORT. CIRCULATION 2004; 110: [phone] 28 Target for non-HDL cholesterol is 30 mg/dL higher than LDL cholesterol target. 29 LDL-CHOLESTEROL RISK CATEGORY* GOAL VERY HIGH (E.G. DIABETES + CVD) <70 MG/DL HIGH (DIABETICS; CHD RISK EQUIVALENTS) <100 MG/DL MODERATELY HIGH (MULTIPLE(2+) RISK FACTORS) <130 MG/DL 0 TO 1 RISK FACTORS <160 MG/DL * NCEP REPORT. CIRCULATION 2004; 110: [phone] 30 GLUCOSE REFERENCE RANGE BASED ON FASTING SPECIMEN. 31 The upper reference limit for Creatinine is approximately 13% higher for people identified as -[place]. 32 REFERENCE RANGES BELOW ARE APPLICABLE TO FEMALES FIRST TRIMESTER - 0.26 - 2.66 mIU/L SECOND TRIMESTER - 0.55 - 2.73 mIU/L THIRD TRIMESTER - 0.43 - 2.91 mIU/L 33 THE CURRENT LOT OF FREE T4 REAGENT AVAILABLE FROM THE [employer] PRODUCES RESULTS THAT ARE APPROXIMATELY 9% HIGHER THAN PREVIOUS REAGENT LOTS. PLEASE INTERPRET THESE RESULTS ACCORDINGLY. 34 25-OHD3 indicates both endogenous production and supplementation. 25-OHD2 is an indicator of exogenous sources such as diet or supplementation. Therapy is based on measurement of Total 25-OHD, with levels <20 ng/mL indicative of Vitamin D deficiency while levels between 20 ng/mL and 30 ng/mL suggest insufficiency. Optimal levels are > or=30ng/mL. For more information on this test, go to http://[email or web address].[email or web address]/faq/25-OHVitaminD 35 LDL-CHOLESTEROL RISK CATEGORY* GOAL VERY HIGH (E.G. DIABETES + CVD) <70 MG/DL HIGH (DIABETICS; CHD RISK EQUIVALENTS) <100 MG/DL MODERATELY HIGH (MULTIPLE(2+) RISK FACTORS) <130 MG/DL 0 TO 1 RISK FACTORS <160 MG/DL * NCEP REPORT. CIRCULATION 2004; 110: [phone] 36 Target for non-HDL cholesterol is 30 mg/dL higher than LDL cholesterol target. 37 LDL-CHOLESTEROL RISK CATEGORY* GOAL VERY HIGH (E.G. DIABETES + CVD) <70 MG/DL HIGH (DIABETICS; CHD RISK EQUIVALENTS) <100 MG/DL MODERATELY HIGH (MULTIPLE(2+) RISK FACTORS) <130 MG/DL 0 TO 1 RISK FACTORS <160 MG/DL * NCEP REPORT. CIRCULATION 2004; 110: [phone] 38 LDL-CHOLESTEROL RISK CATEGORY* GOAL VERY HIGH (E.G. DIABETES + CVD) <70 MG/DL HIGH (DIABETICS; CHD RISK EQUIVALENTS) <100 MG/DL MODERATELY HIGH (MULTIPLE(2+) RISK FACTORS) <130 MG/DL 0 TO 1 RISK FACTORS <160 MG/DL * NCEP REPORT. CIRCULATION 2004; 110: [phone] 39 REFERENCE RANGES BELOW ARE APPLICABLE TO FEMALES FIRST TRIMESTER - 0.20 - 4.70 mIU/L SECOND TRIMESTER - 0.30 - 4.10 mIU/L THIRD TRIMESTER - 0.40 - 2.70 mIU/L 40 25-OHD3 indicates both endogenous production and supplementation. 25-OHD2 is an indicator of exogenous sources such as diet or supplementation. Therapy is based on measurement of Total 25-OHD, with levels <20 ng/mL indicative of Vitamin D deficiency while levels between 20 ng/mL and 30 ng/mL suggest insufficiency. Optimal levels are > or=30ng/mL. 41 GLUCOSE REFERENCE RANGE BASED ON FASTING SPECIMEN. 42 The upper reference limit for Creatinine is approximately 13% higher for people identified as -[place]. 43 Reporting Limit: 1.0 mg/dL Normal: Up to 3 mg/dL Acetone concentrations are markedly elevated during diabetic or fasting ketoacidosis and may range from 10 - 70 mg/dL. Analysis by Gas Chromatography (GC) 44 Reporting Limit: 1.0 mcg/mL Synonym(s): MEK Analysis by Gas Chromatography (GC) 45 Reporting Limit: 1.0 mcg/mL Analysis by Gas Chromatography (GC) 46 Reporting Limit: 1.0 mcg/mL Analysis by Gas Chromatography (GC) 47 Reporting Limit: 1.0 mcg/mL Analysis by Gas Chromatography (GC) 48 Reporting Limit: 1.0 mcg/mL Synonym(s): MIBK Analysis by Gas Chromatography (GC) 49 Reporting Limit: 1.0 mcg/mL Analysis by Gas Chromatography (GC) 50 Reporting Limit: 1.0 mcg/mL Analysis by Gas Chromatography (GC) 51 Reporting Limit: 0.50 mcg/mL Analysis by Gas Chromatography (GC) 52 Reporting Limit: 1.0 mcg/mL Analysis by Gas Chromatography (GC) This test performed at: [facility] [address] [place] [id number] Director: Cristel Grubbs, PhD 53 NORMAL >5.4 NG/ML BORDERLINE 3.4-5.4 NG/ML LOW <3.4 NG/ML 54 GLUCOSE REFERENCE RANGE BASED ON FASTING SPECIMEN. 55 REFERENCE RANGES BELOW ARE APPLICABLE TO FEMALES FIRST TRIMESTER - 0.20 - 4.70 mIU/L SECOND TRIMESTER - 0.30 - 4.10 mIU/L THIRD TRIMESTER - 0.40 - 2.70 mIU/L 56 LDL-CHOLESTEROL RISK CATEGORY* GOAL VERY HIGH (E.G. DIABETES + CVD) <70 MG/DL HIGH (DIABETICS; CHD RISK EQUIVALENTS) <100 MG/DL MODERATELY HIGH (MULTIPLE(2+) RISK FACTORS) <130 MG/DL 0 TO 1 RISK FACTORS <160 MG/DL * NCEP REPORT. CIRCULATION 2004; 110: [phone] 57 GLUCOSE REFERENCE RANGE BASED ON FASTING SPECIMEN. 58 REFERENCE RANGES BELOW ARE APPLICABLE TO FEMALES FIRST TRIMESTER - 0.20 - 4.70 mIU/L SECOND TRIMESTER - 0.30 - 4.10 mIU/L THIRD TRIMESTER - 0.40 - 2.70 mIU/L 59 LDL-CHOLESTEROL RISK CATEGORY* GOAL VERY HIGH (E.G. DIABETES + CVD) <70 MG/DL HIGH (DIABETICS; CHD RISK EQUIVALENTS) <100 MG/DL MODERATELY HIGH (MULTIPLE(2+) RISK FACTORS) <130 MG/DL 0 TO 1 RISK FACTORS <160 MG/DL * NCEP REPORT. CIRCULATION 2004; 110: [phone] 60 LDL-CHOLESTEROL RISK CATEGORY* GOAL VERY HIGH (E.G. DIABETES + CVD) <70 MG/DL HIGH (DIABETICS; CHD RISK EQUIVALENTS) <100 MG/DL MODERATELY HIGH (MULTIPLE(2+) RISK FACTORS) <130 MG/DL 0 TO 1 RISK FACTORS <160 MG/DL * NCEP REPORT. CIRCULATION 2004; 110: [phone] 61 TSH REFERENCE RANGE: FIRST TRIMESTER - 0.20 - 4.70 mU/L SECOND TRIMESTER - 0.30 - 4.10 mU/L THIRD TRIMESTER - 0.40 - 2.70 mU/L 62 GLUCOSE REFERENCE RANGE BASED ON FASTING SPECIMEN. 63 LDL-CHOLESTEROL RISK CATEGORY* GOAL VERY HIGH (E.G. DIABETES + CVD) <70 MG/DL HIGH (DIABETICS; CHD RISK EQUIVALENTS) <100 MG/DL MODERATELY HIGH (MULTIPLE(2+) RISK FACTORS) <130 MG/DL 0 TO 1 RISK FACTORS <160 MG/DL * NCEP REPORT. CIRCULATION 2004; 110: [phone] 64 Specimen: [id number] - TEST: UR SPECIMEN COMMENTS: GASTRIC BIOPSY TEST: UR 65 OPERATION/PROCEDURE Colon., EGD DIAGNOSIS: PART 1: TRANSVERSE COLON POLYPS, SIGMOID COLON POLYPS AND TRANSVERSE COLON BIOPSY : POLYPOID COLONIC MUCOSA WITH COLITIS, MODERATE, WITH CRYPTITIS. PART 2: STOMACH BIOPSY : CHRONIC GASTRITIS WITH REGENERATIVE FEATURES. NO HELICOBACTER SEEN WITH SPECIAL STAIN. ORTIZ/radha GROSS Part 1 TRANSVERSE COLON POLYPS, SIGMOID COLON POLYPS + TRANSVERSE COLON BX. . The specimen is received in an appropriately labeled container. This contains seven rounded elizabeth colored pieces of soft tissue measuring up to 0.4 cm.; filtered and submitted in toto within a single cassette. Part 2 STOMACH BIOPSY . The specimen is received in an appropriately labeled container. This contains two rounded elizabeth colored pieces of soft tissue measuring up to 0.8 cm.; further sectioned and submitted in toto within a single cassette. ORTIZ/chico MICROSCOPIC Part 1: Sections reveal markedly inflamed colonic mucosa with hemorrhage, and confluent acute and chronic inflammation. Inflammatory cells surround and infiltrate individual glands. The glands are shortened, angularly distorted, with markedly increased crypt mitotic activity. Crypt abscesses are not seen. Part 2: Sections show glandular elongation, tortuosity, and hypercellularity of gastric pits, foveolar hyperplasia, and villiform transformation of the mucosa. The glands appear more angular than usual. Foveolar cells show mild mucin depletion and vacuolization. There is capillary congestion, vasodilatation and edema. Smooth muscle fibers extend high into the lamina propria. There are interstitial chronic inflammatory MICROSCOPIC (Continued) cells. There are no Helicobacter-type bacteria identified with Warthin- Starry staining. The controls are adequate. PRE OPERATIVE DIAGNOSIS Change in bowel; nausea REVIEW CODE CODE: I MABEL Black MD 05/08/08 66 FASTING 67 HDL REFERENCE RANGES ADULTS (20 YEARS & OLDER) DESIRABLE: > OR=60 MG/DL HIGHER RISK: <40 MG/DL 68 LDL-CHOLESTEROL RISK CATEGORY* GOAL VERY HIGH (E.G. DIABETES + CVD) <70 MG/DL HIGH (DIABETICS; CHD RISK EQUIVALENTS) <100 MG/DL MODERATELY HIGH (MULTIPLE(2+) RISK FACTORS) <130 MG/DL 0 TO 1 RISK FACTORS <160 MG/DL * NCEP REPORT. CIRCULATION 2004; 110: 227-239 69 GLUCOSE REFERENCE RANGE BASED ON FASTING SPECIMEN. 70 HDL REFERENCE RANGES ADULTS (20 YEARS & OLDER) DESIRABLE: > OR=60 MG/DL HIGHER RISK: <40 MG/DL 71 LDL-CHOLESTEROL RISK CATEGORY* GOAL VERY HIGH (E.G. DIABETES + CVD) <70 MG/DL HIGH (DIABETICS; CHD RISK EQUIVALENTS) <100 MG/DL MODERATELY HIGH (MULTIPLE(2+) RISK FACTORS) <130 MG/DL 0 TO 1 RISK FACTORS <160 MG/DL * NCEP REPORT. CIRCULATION 2004; 110: 227-239 72 TSH REFERENCE RANGE: FIRST TRIMESTER - 0.20 - 4.70 mU/L SECOND TRIMESTER - 0.30 - 4.10 mU/L THIRD TRIMESTER - 0.40 - 2.70 mU/L 73 HDL REFERENCE RANGES ADULTS (20 YEARS & OLDER) DESIRABLE: > OR=60 MG/DL HIGHER RISK: <40 MG/DL 74 LDL-CHOLESTEROL RISK CATEGORY* GOAL VERY HIGH (E.G. DIABETES + CVD) <70 MG/DL HIGH (DIABETICS; CHD RISK EQUIVALENTS) <100 MG/DL MODERATELY HIGH (MULTIPLE(2+) RISK FACTORS) <130 MG/DL 0 TO 1 RISK FACTORS <160 MG/DL * NCEP REPORT. CIRCULATION 2004; 110: 227-239 75 GLUCOSE REFERENCE RANGE BASED ON FASTING SPECIMEN. 76 THE GFR ESTIMATE IS NOT ADJUSTED FOR RACE, IF THE PATIENT RACE IS -[place], THE GFR ESTIMATE MUST BE MULTIPLIED BY A FACTOR OF 1.21. 77 HDL REFERENCE RANGES ADULTS (20 YEARS & OLDER) DESIRABLE: > OR=60 MG/DL HIGHER RISK: <40 MG/DL 78 LDL-CHOLESTEROL RISK CATEGORY* GOAL VERY HIGH (E.G. DIABETES + CVD) <70 MG/DL HIGH (DIABETICS; CHD RISK EQUIVALENTS) <100 MG/DL MODERATELY HIGH (MULTIPLE(2+) RISK FACTORS) <130 MG/DL 0 TO 1 RISK FACTORS <160 MG/DL * NCEP REPORT. CIRCULATION 2004; 110: 227-239 79 GLUCOSE REFERENCE RANGE BASED ON FASTING SPECIMEN. 80 THE GFR ESTIMATE IS NOT ADJUSTED FOR RACE, IF THE PATIENT'S RACE IS -[place], THE GFR ESTIMATE MUST BE MULTIPLIED BY A FACTOR OF 1.21. 81 HDL REFERENCE RANGES ADULTS (20 YEARS & OLDER) DESIRABLE: > OR=60 MG/DL HIGHER RISK: <40 MG/DL 82 LDL-CHOLESTEROL RISK CATEGORY* GOAL VERY HIGH (E.G. DIABETES + CVD) <70 MG/DL HIGH (DIABETICS; CHD RISK EQUIVALENTS) <100 MG/DL MODERATELY HIGH (MULTIPLE(2+) RISK FACTORS) <130 MG/DL 0 TO 1 RISK FACTORS <160 MG/DL * NCEP REPORT. CIRCULATION 2004; 110: 227-239 Procedures Date CPT Code Description Status Comment 08/07/2016 01900 Echocardiography Completed 07/31/2016 Bone Mineral Density Test Completed 07/31/2016 80012 Dxa Bone Density [employer] Vertebral Completed Fracture Assessment 07/22/2016 49748 Non-Invcorrotid/Comp /Bilat Study Completed 06/04/2015 54821 Therapeutic,Prophylactic Intramuscular Inj Completed 05/28/2015 15869 Non-Invcorrotid/Comp /Bilat Study Completed 05/24/2015 89304 EKG-Tracing & Report Completed 05/24/2015 18584 Dxa Bone Density [employer] Vertebral Completed Fracture Assessment 05/23/2015 20043 Holter Monitor Office Completed 05/21/2015 86066 Echocardiography Completed 10/18/2014 Mammogram Completed OBGYN 05/24/2014 74934 Spirometry Graphic Record/Max Voluntary Vent Completed 05/24/2014 69967 EKG-Tracing & Report Completed 05/23/2014 17855 Holter Monitor Office Completed 05/22/2014 63807 PVR-Atrerial Study Completed 05/18/2014 16397 Non-Invcorrotid/Comp /Bilat Study Completed 05/15/2014 97132 Echocardiography Completed 05/10/2014 40890 Bone Density,Vertebral Fracture Completed 05/10/2014 69715 Bone Density Completed 11/25/2012 13507 Non-Invcorrotid/Comp /Bilat Study Completed 11/25/2012 60823 Echocardiography Completed 11/25/2012 33077 Bone Density,Vertebral Fracture Completed 11/25/2012 65831 Bone Density Completed 11/23/2012 81437 EKG-Tracing & Report Completed 11/22/2012 10264 Spirometry Graphic Record/Max Voluntary Vent Completed 11/22/2012 92065 PVR-Atrerial Study Completed 11/22/2012 48946 Holter Monitor Office Completed 03/08/2012 Colonoscopy Completed 09/29/2011 07200 EKG-Tracing & Report Completed 09/26/2011 91866 Spirometry Graphic Record/Max Voluntary Vent Completed 09/26/2011 75210 PVR-Atrerial Study Completed 09/26/2011 27143 Holter Monitor Office Completed 09/25/2011 49022 Bone Density,Vertebral Fracture Completed 09/25/2011 06531 Bone Density Completed 09/24/2011 42859 Non-Invcorrotid/Comp /Bilat Study Completed 09/24/2011 22131 Echocardiography Completed 04/28/2011 88146 Spirometry Graphic Record/Max Voluntary Vent Completed 11/12/2010 62836 Holter Monitor Office Completed 11/12/2010 67745 Spirometry Graphic Record/Max Voluntary Vent Completed 11/12/2010 45191 PVR-Atrerial Study Completed 11/12/2010 30294 Non-Invcorrotid/Comp /Bilat Study Completed 11/12/2010 88792 Echocardiography Completed 11/07/2010 35795 Bone Density,Vertebral Fracture Completed 11/07/2010 43062 Bone Density Completed 05/02/2010 51722 PFT Evaluation Completed 05/02/2010 28094 Holter Monitor Office Completed 05/01/2010 97762 Non-Invcorrotid/Comp /Bilat Study Completed 05/01/2010 71247 Echocardiography Completed 10/04/2009 46861 EKG-Tracing & Report Completed 10/04/2009 62585 Bone Density,Vertebral Fracture Completed 10/04/2009 24475 Bone Density Completed 08/02/2008 67708 Non-Invcorrotid/Comp /Bilat Study Completed 08/02/2008 66377 Doppler Color Flow Velocity Completed 08/02/2008 49724 Doppler/ECHO Completed 08/02/2008 44031 Echocardiography Completed 08/02/2008 20418 Bone Density,Vertebral Fracture Completed 08/02/2008 88736 Bone Density Completed 07/24/2008 24504 PFT Evaluation Completed 07/24/2008 84892 PVR-Atrerial Study Completed 07/24/2008 86900 Holter Monitor Office Completed 07/24/2008 79113 EKG-Tracing & Report Completed 06/03/2007 97441 Non-Invcorrotid/Comp /Bilat Study Completed 06/03/2007 81261 Doppler/ECHO Completed 06/03/2007 08090 Doppler Color Flow Velocity Completed 06/03/2007 12877 ECHO-2D W/Wo M-Mode Completed 06/02/2007 59487 EKG-Tracing & Report Completed 06/02/2007 56868 PVR-Atrerial Study Completed 06/02/2007 10343 Holter Monitor Office Completed 06/02/2007 63504 PFT Evaluation Completed 12/08/2006 63127 PFT Evaluation Completed 12/08/2006 26956 Bone Density Peripheral(Wrist) Completed 12/08/2006 21245 Bone Density Completed 05/26/2006 53434 Spirometry Graphic Record/Max Voluntary Vent Completed 05/26/2006 13872 PVR-Atrerial Study Completed 05/26/2006 17145 Non-Invcorrotid/Comp /Bilat Study Completed 07/28/2005 28291 Vertebral Fracture Assessment Completed 07/28/2005 45756 Bone Density Study Completed 07/07/2005 18152 Holter Monitor Office Completed 07/02/2005 48473 ECHO-2D W/Wo M-Mode Completed 07/02/2005 93291 Doppler Color Flow Velocity Completed 07/02/2005 03720 Doppler/ECHO Completed 11/29/2003 35912 Bone Density Study Completed 11/27/2003 41895 Spirometry Graphic Record/Max Voluntary Vent Completed 11/27/2003 39693 Holter Monitor Office Completed 11/27/2003 09028 EKG-Tracing & Report Completed 11/21/2003 87256 Doppler Color Flow Velocity Completed 11/21/2003 72193 Doppler/ECHO Completed 11/21/2003 45394 ECHO-2D W/Wo M-Mode Completed Encounters Type Date Location Provider CPT E/M Dx Office Visit 06/01/2017 2:30p [place] [address] M54.5 Office Visit 05/11/2017 11:00a [place] [address] M54.5 Office Visit 01/21/2017 10:00a [place] [address] R10.30 Office Visit 01/14/2017 10:30a [place] [address] R10.30 Office Visit 11/24/2016 11:30a [place] [address] N39.0 M19.90 Office Visit 08/25/2016 1:50p [place] [address] I34.0 M81.0 I65.23 E78.5 I11.9 J44.9 K21.9 N39.0 Z00.00 Office Visit 05/13/2016 11:40a [place] [address] E78.5 I11.9 J44.9 K21.9 M81.0 Office Visit 09/10/2015 2:30p [place] [address] E78.5 I11.9 J44.9 K21.9 M81.0 Office Visit 08/27/2015 11:30a [place] [address] H25.12 E78.5 I11.9 J44.9 Z01.810 Office Visit 06/04/2015 10:00a [place] [address] M54.5 I65.23 E78.5 M81.0 I11.9 K21.9 J44.9 Z79.899 Z23 Office Visit 05/03/2015 11:00a Main Office Hailey Chaparro M.D. 47450 I11.9 Office Visit 11/28/2014 10:10a [place] [address] 788.39 Office Visit 11/15/2014 11:50a [place] [address] 788.39 Office Visit 11/08/2014 10:30a [place] [address] 788.1 Office Visit 09/04/2014 10:10a [place] [address] 530.81 Office Visit 08/07/2014 10:50a [place] [address] 530.81 496 272.4 Office Visit 06/05/2014 3:20p [place] [address] 530.81 Office Visit 05/23/2014 11:10a [place] [address] 496 Office Visit 05/10/2014 11:30a [place] [address] 786.50 530.81 564.09 Office Visit 05/03/2014 10:50a [place] [address] 786.50 496 Office Visit 04/25/2014 2:00p [place] [address] 569.2 Office Visit 01/10/2014 11:30a [place] [address] 272.4 496 424.0 402.10 Office Visit 09/26/2013 11:10a [place] [address] 272.4 496 424.0 402.10 V58.69 466.0 Office Visit 05/17/2013 11:10a [place] [address] 461.90 272.4 496 V70.0 424.0 402.10 Office Visit 12/06/2012 10:40a [place] [address] 733.01 433.10 272.4 496 V70.0 Office Visit 06/14/2012 11:00a [place] [address] 693.0 Office Visit 05/24/2012 10:00a [place] [address] 496 733.01 433.10 272.4 402.10 Office Visit 10/06/2011 10:10a [place] [address] 496 733.01 433.10 424.0 272.4 402.10 Office Visit 05/05/2011 11:00a [place] [address] 496 424.0 V58.69 272.4 461.1 Office Visit 12/24/2010 1:30p [place] [address] 276.2 788.31 V03.82 Office Visit 12/02/2010 10:50a [place] [address] 496 276.2 Office Visit 11/18/2010 10:10a [place] [address] 424.0 496 733.01 311 V58.69 272.4 402.10 GENERAL Office Visit 06/24/2010 2:00p [place] [address] 311 427.0 496 424.0 Office Visit 05/27/2010 11:20a [place] [address] 311 Office Visit 05/13/2010 10:00a [place] [address] 427.0 496 424.0 733.01 V58.69 311 Office Visit 10/10/2009 10:30a [place] [address] 272.4 381.04 466.00 496 Office Visit 09/10/2009 11:10a [place] [address] 461.1 381.04 Office Visit 04/16/2009 2:30p [place] [address] 569.49 Office Visit 12/05/2008 3:00p [place] [address] 466.00 Office Visit 11/13/2008 2:50p [place] [address] 272.4 Office Visit 08/15/2008 2:20p [place] [address] 424.0 733.01 V58.69 496 272.4 427.0 569.49 V04.89 788.33 305.1 564.10 402.10 GENERAL Office Visit 03/27/2008 10:00a [place] [address] 250.02 569.49 V04.81 Office Visit 09/13/2007 1:30p [place] [address] 788.33 305.1 564.10 Office Visit 07/05/2007 1:40p [place] [address] 599.0 Office Visit 06/14/2007 10:50a [place] [address] 564.10 Office Visit 02/16/2007 11:30a [place] [address] Office Visit 12/15/2006 10:50a [place] [address] 427.0 443.89 250.02 746.89 238.4 Office Visit 06/15/2006 11:50a [place] [address] Office Visit 07/29/2005 1:40p [place] [address] Office Visit 11/12/2004 2:30p [place] [address] Office Visit 12/04/2003 2:20p [place] [address] Plan of Care 06/01/2017 - Perry Chaparro, MDM54.5 Low back painComments:Methods to avoid reinjury, safe lifting and posture discussed. Importance of routine matinence and back strengthening excersizes addressed. Back excersizes reviewed and pt imformation provided and discussed. Physical Therapy ordered and treatmentplan and course of therapy reviewed as applicableMethodsto avoid reinjury, safe lifting and posture discussed. Importance of routine matinence and back strengthening excersizes addressed. Back excersizes reviewed and pt imformation provided and discussed. Physical Therapy ordered and treatmentplan and course of therapy reviewed as applicableAllNew Medication:Miacalcin 200 Unit/ML
== END 2017-09-29 11:25 | disposition home or self-care (01) ==
LOC: UCCORT 10:05
DX: J44.1 Chronic obstructive pulmonary disease with (acute) exacerbation (principal); I10 Essential (primary) hypertension; Z87.891 Personal history of nicotine dependence
CPT/HCPCS: 71046; 99212; G0463

== ENCOUNTER 2017-10-01 14:02 | Emergency (ER) | payer MEDICARE, BC ==
--- NOTE | 2017-10-01 14:47 | UC ---
Shortness of Breath HPI - HPI Summary HPI Summary: sob x 10 days , mild cough, no fever, + chills, fatigue, decrease po intake had the flue about 2 weeks ago - History of Current Complaint Stated Complaint: SOB,LOSS OF ENERGY Time Seen by Provider: 10/01/17 14:20 Hx Obtained From: Patient Onset/Duration: Gradual Onset, Lasting Days - 10, Still Present Timing: Constant Current Severity: Moderate Dyspnea At: Rest Aggrevating Factors: Movement Alleviating Factors: Nothing Associated Signs & Symptoms: Positive: Cough (Nonproductive), Chills. Negative : Cough (Productive), Cough (Bloody Sputum), Wheezing, Chest Pain w/Cough, Chest Pain Unrelated to Cough, Fever, Nasal Congestion, Dizzy, Calf Pain/ Swelling, Edema - Allergy/Home Medications Allergies/Adverse Reactions: Allergies Allergy/AdvReac Type Severity Reaction Status Date / Time No Known Allergies Allergy Verified 10/01/17 14:32 Home Medications: Home Medications Areds 2 10/01/17 [History] PMH/Surg Hx/FS Hx/Imm Hx Cardiovascular History: Hypertension Respiratory History: COPD - Surgical History Surgical History: Yes Surgery Procedure, Year, and Place: benign bladder cyst removed 11 years ago , CATARACTS - Family History Known Family History: Positive: Hypertension - Social History Alcohol Use: None Substance Use Type: None Smoking Status (MU): Former Smoker When Did the Patient Quit Smoking/Using Tobacco: 2005 Review of Systems Constitutional: Chills, Fatigue Skin: Negative Eyes: Negative ENT: Negative Respiratory: Shortness Of Breath, Cough Cardiovascular: Negative Is Patient Immunocompromised?: No All Other Systems Reviewed And Are Negative: Yes Physical Exam Triage Information Reviewed: Yes Appearance: No Pain Distress, Ill-Appearing Vital Signs Reviewed: Yes Eyes: Positive: Conjunctiva Clear ENT: Positive: Normal ENT inspection, Hearing grossly normal, Pharynx normal Neck: Positive: Supple, Nontender, No Lymphadenopathy Respiratory: Positive: Chest non-tender, Decreased breath sounds Cardiovascular: Positive: RRR, No Murmur, Pulses Normal Abdominal Exam: Normal Abdomen Description: Positive: Nontender, Soft. Negative: CVA Tenderness (R), CVA Tenderness (L), Distended, Guarding Bowel Sounds: Positive: Present Musculoskeletal Exam: Normal Skin Exam: Normal Diagnostics - EKG Cardiac Rate: NL Cardiac Rhythm: Sinus: Normal Ectopy: None ST Segment: Normal Shortness of Breath Dx - Differential Dx/Diagnosis Provider Diagnoses: copd. sob Discharge - Discharge Plan Condition: Good Disposition: HOME Patient Education Materials: Shortness of Breath (ED) Referrals: Perry Chaparro MD [Primary Care Provider] - 4 Days Additional Instructions: will check cbc, cmp , bnp please call the office in one day for the results please call you pcp today and make an appointment for Thursday10/05/17 go to ED if getting worse
[2017-10-01 15:09] VITALS: BP 151/87
[2017-10-01 18:47] LABS: Hematocrit 44 % (35-47); Hemoglobin 14.7 g/dl (12.0-16.0); Mean Corpuscular HGB Conc 34 g/dl (31-36); Mean Corpuscular Hemoglobin 31 pg (27-31); Mean Corpuscular Volume 93 fL (80-97); Mean Platelet Volume 9 um3 (7.4-10.4); Platelet Count 450 10^3/ul (150-450); Red Blood Count 4.68 10^6/ul (4.0-5.4); Red Cell Distribution Width 14 % (10.5-15); White Blood Count 12.2 10^3/ul (3.5-10.8)
[2017-10-01 18:52] LABS: ABS Basophils 0 10^3/ul (0-0.2); ABS Eosinophils 0 10^3/ul (0-0.6); ABS Lymphocytes 0.8 10^3/ul (1.0-4.8); ABS Monocytes 0.5 10^3/ul (0-0.8); ABS Neutrophils 10.8 10^3/ul (1.5-7.7); ABS Nucleated RBC 0 10^3/ul; Eosinophil % 0.3 % (0-6); Lymphocyte % 6.6 % (25-47); Nucleated Red Blood Cells % 0
[2017-10-01 19:18] LABS: EGFR Non-African American 56.6 (>60)
== END 2017-10-01 15:42 | disposition home or self-care (01) ==
LOC: UCCORT 14:02
DX: J44.9 Chronic obstructive pulmonary disease, unspecified (principal); R06.02 Shortness of breath; R53.83 Other fatigue; I10 Essential (primary) hypertension; Z87.891 Personal history of nicotine dependence
CPT/HCPCS: 36415; 80053; 81003; 83880; 85025; 87077; 87086; 87186; 93005; 99212; G0463